=== PATIENT | female | born 2000 | race Caucasian/White ===

== ENCOUNTER 2024-02-19 00:51 | Day surgery (SDC) | payer OTHER, MEDICAID, SELFPAY ==
[2024-02-17 10:10] VITALS: BMI 22.6
--- NOTE | 2024-02-17 10:15 | SUR.PREOP ---
Report to the Outpatient Waiting Room, entrance under the green pavilion located off [facility], at time 0830 on date 02/19/24. Planned Procedure Time: 1030. Time changes happen often and if your time is changed the preop area will call you the afternoon before. - You and your visitor will be asked to self-screen and do not enter if you have any COVID symptoms. - A mask is optional within the hospital at this time. Patients may have clear liquids (water, carbonated beverages, clear teas, apple juice) until 3 hours prior to surgery with a maximum of 20 ounces. - No food from midnight until time of surgery - Infants may have breast milk until 4 hours before surgery, formula 6 hours prior to surgery. - Children will be allowed to drink immediately following surgery. If applicable, please bring a bottle or sippy cup to assist with drinking. Juice, water, soda, and popsicles are readily available. For infants on formula, please bring formula the day of surgery. Pacifiers are allowed. Take the following medications with a SIP of water the morning of surgery: NA DO NOT STOP ANY OF YOUR OTHER PRESCRIPTION MEDICATIONS PRIOR TO SURGERY ?EXCEPT THE FOLLOWING Medications to discontinue per physician NA Date to take last dose Please no make-up, nail luxembourgish, hairspray, perfume, deodorant, or body powder the day of surgery. No jewelry (including any body piercings) or valuables the day of surgery, leave them at home. Please take a shower or bath the night before, or the morning of, surgery with an antibacterial soap. Wear comfortable, loose fitting clothing. Children are encouraged to wear pajamas. - Jewelry must be removed prior to entering the operating room. Rings and piercings that are not removed may be cut off. - The hospital will not accept responsibility for valuables. - Please leave all valuables, including medications, at home the day of surgery. If you are going home after surgery, a licensed mobile lounge driver or operator must drive you home. - NO public transportation without another adult if you receive anesthesia. - We recommend that an adult stay with you for 24 hours following discharge. - We also recommend that you do not drive, make important decision, drink alcoholic beverages, or take any drugs that were not prescribed by your health care provider for at least 24 hours after your discharge time. For Pediatric surgeries, we recommend two adults accompany the child home. Follow any additional instructions given to you from your surgeon. If you or anyone in your household have experienced Covid symptoms in the past week, please notify your surgeon or the nurse liaison at the phone number below for possible testing. Telephone instructions given to __PATIENT___and asked if any additional questions and then verbalized understanding. Patient advised to call surgeon office or pre surgery nurse liaison [phone] if any additional questions.
--- NOTE | 2024-02-18 15:46 | WPDANESEPPF ---
Anes - Initial Pre Proc Eval Procedure: Operation Date: 02/19/24 10:30 Proposed Procedures p Laparoscopic Right Ovarian Cystectomy - Juancho Stokes MD Date/Time: 02/18/24 15:46 Surgeon: Juancho Stokes MD Pre Op Diagnosis: right ovarian cyst Patient Data Age: 23 Gender: F Height: 1.73 m Weight: 67.59 kg Allergies Allergy/AdvReac Type Severity Reaction Status Date / Time latex AdvReac Mild Rash Verified 02/17/24 10:13 Home Medications Medication Instructions Recorded Confirmed Type No Home Medications 02/17/24 02/17/24 History Patient hx anesthesia problems: none Family hx anesthesia problems: none Results Review: All pre-operative results and documents have been reviewed as part of the pre-operative evaluation. [facility] Past Medical History Medical History (Updated 02/18/24 @ 15:46 by Mark Gonzalez DO) Anxiety PONV (postoperative nausea and vomiting) Social History Social History Years smoked: 4 Tobacco type: e-cigarettes/vaping Living arrangements: with family Anes - Eval Final PreProcedure Day of Procedure 02/18/24 15:46 Patient weight: normal Heart: regular rate and rhythm Lungs: clear to auscultation and normal air movement Airway: Mallampati scale class II Neurological: alert and oriented Last oral intake: >/= 8 hours ASA classification: II Emergent: no Anesthetic plan: proceed Anesthesia type and monitoring: general ETT and standard monitoring Results Review: All pre-operative results and documents have been reviewed as part of the pre-operative evaluation. Informed Consent: The patient's anesthetic plan and its attendant risks and benefits were discussed with the patient/family/POA. Questions were solicited and answers provided to the satisfaction of the patient/family/POA.
[2024-02-19] VITALS (12 sets, daily range): BP systolic 102–124; BP diastolic 51–81; PULSE 55–96; RESP 12–16; TEMP 36.6–36.7; O2SAT 95–100
[2024-02-19] MEDS: LACTATED RINGERS 1,000 ML 30 ML IV CONT ×3 (09:28→15:29)
[2024-02-19] MEDS: KETOROLAC 15 MG/ML VIAL (*BKC) IV PUSH (09:29)
[2024-02-19] MEDS: ACETAMINOPHEN 500 MG TABLET 1000 MG PO (09:29)
[2024-02-19] MEDS: SCOPOLAMINE 1 MG PATCH 1 PATCH TRANSDERM (09:51)
--- NOTE | 2024-02-19 11:37 | WPDHPUPDATE1 ---
History and Physical Update Update Date/Time: 02/19/24 11:37 History and Physical has been reviewed, including an updated exam of the patient. There are NO changes in the patient's condition. Risks, benefits, and alternatives have been discussed and questions answered. Patient agrees to proceed with procedure.
--- NOTE | 2024-02-19 13:21 | W.PM.PROC2 ---
Procedure Note - Detailed Date of Procedure 02/19/24 Pre-op Diagnosis right ovarian cyst , pelvic pain Post-op Diagnosis Same Procedure Performed laparoscopic right ovarian cystectomy Surgeon Juancho Stokes MD Anesthesia General Indications Pelvic pain Findings 7 cm right ovarian cyst, normal left ovary, normal tubes and uterus. Description of Procedure The patient was taken to the operating room. She was prepped and draped in the dorsal lithotomy position after induction general anesthesia. A 5 mm incision was made with a scalpel on the abdominal skin in the left upper quadrant of the abdomen. A 5 mm trocar was inserted into the intra-abdominal cavity under direct visualization the scope. In the same fashion a 5 mm left lower quadrant trocar was inserted and a 5 mm infraumbilical trocar was inserted. Laparoscopic ovarian cystectomy was performed on the right ovary using sharp and blunt dissection along with cautery. LigaSure cautery was used to transect along the base of the cyst. Cyst was taken out through the left lower quadrant trocar site. The cut surface was cauterized after the cyst capsule was peeled out. It was hemostatic after the cut surface was cauterized. The pelvis was irrigated. The pneumoperitoneum was reduced. The trocars were removed. Skin was closed with subcuticular 4 micro. The patient's incisions were covered with Dermabond. She was taken recovery room in stable condition. Sponge lap and needle counts were correct x2. Estimated Blood Loss 25 Pathology Yes Complications No immediate complications Condition Stable Disposition Same day
[2024-02-19] MEDS: fentaNYL CITRATE INJ (*CRX) 100 MCG/2 ML VIAL 25 MCG IV PUSH ×8 (13:25→13:50)
[2024-02-19] MEDS: HYDROmorphone HCL INJ (*CRX) 1 MG/ML SYR 0.5 MG IV PUSH ×3 (14:06→15:15)
[2024-02-19] MEDS: oxyCODONE (*CRX) 5 MG/5 ML ORAL SOLN IR PO (14:47)
== END 2024-02-19 15:52 | disposition home or self-care (01) ==
PROVIDERS: Visit Provider Obstetrics & Gynecology
PROC: (CPT 49320; principal; 2024-02-19 10:30)
DX: N83.201 Unspecified ovarian cyst, right side (principal); F17.290 Nicotine dependence, other tobacco product, uncomplicated
CPT/HCPCS: 58662; 88305; 88307; A9270; J1100; J1170; J1885; J2250; J2405; J2704; J3010; J7030; J7120

== ENCOUNTER 2024-05-26 11:32 | Outpatient (CLI) | payer OTHER, MEDICAID, SELFPAY ==
--- NOTE | ~2024-05-26 | US_ITS ---
EXAMINATION: US OB <=14 wk fetus w TV DATE: 05/26/2024 12:38 INDICATION: Missed miscarriage. TECHNIQUE: Real-time transabdominal and transvaginal pelvic ultrasound was performed. COMPARISON: None. FINDINGS: TRANSABDOMINAL ULTRASOUND: The uterus measures 9.9 x 5.8 x 6.9 cm. TRANSVAGINAL ULTRASOUND: There is a cyst in the endometrial complex with mean diameter of 15 mm. If t his finding is a gestational sac, it correlates with an estimated gestational age of 6 weeks and 2 da ys +/- 4 days. No definite yolk sac or pole is identified. There is a small hematoma in the end ometrial complex abutting the cyst. The right ovary measures 3.5 x 1.6 x 3.4 cm. The left ovary measu res 3.3 x 2.0 x 3.4 cm. There is normal vascular flow in the ovaries. There is no free fluid in the p tierra. IMPRESSION: 1. Cyst in the endometrial complex that may be a gestational sac with estimated date of delivery of 01/17/2025. Ectopic and spontaneous are not excluded. Serial beta-hCGs are recommen ded. 2. Small hematoma in the endometrial complex abutting the cyst. Reviewed, dictated and finalized at location A. IMPRESSION: 1. Cyst in the endometrial complex that may be a gestational sac with estimate d date of delivery of 01/17/2025. Ectopic and spontaneous are not excluded. Serial beta-hCGs are recommended. 2. Small hematoma in the endometrial complex abutting the cyst.
== END 2024-05-26 11:33 | disposition home or self-care (01) ==
PROVIDERS: Visit Provider Obstetrics & Gynecology
DX: O02.1 Missed abortion (principal); N85.8 Other specified noninflammatory disorders of uterus
CPT/HCPCS: 76801; 76817

== ENCOUNTER 2024-06-10 01:34 | Day surgery (SDC) | payer OTHER, MEDICAID, SELFPAY ==
[2024-06-08 14:14] VITALS: BMI 23.0
--- NOTE | 2024-06-08 14:15 | PC.NURSE ---
Report to the Outpatient Waiting Room, entrance under the green pavilion located off [facility], at time _0700_ on date _[id number]_. Planned Procedure Time: _0900_.? Time changes happen often and if your time is changed the preop area will call you the afternoon before. - You and your visitor will be asked to self-screen and do not enter if you have any COVID symptoms. Please call surgeon if you need to reschedule. - A mask is optional within the hospital at this time. Patients may have clear liquids (water, carbonated beverages, clear teas, apple juice) until 3 hours prior to surgery with a maximum of 20 ounces. - No food from midnight until time of surgery and no smoking No Vaping. Take only the following medications with a SIP of water on the morning of surgery: ___None DO NOT STOP ANY OF YOUR OTHER PRESCRIPTION MEDICATIONS PRIOR TO SURGERY EXCEPT THE FOLLOWING Medications to discontinue per physician ____None Date to take last dose Please no make-up, nail french, hairspray, perfume, deodorant, or body powder the day of surgery.? No jewelry (including any body piercings) or valuables the day of surgery, leave them at home.? Please take a shower or bath the night before, or the morning of, surgery with an antibacterial soap.? Wear comfortable, loose fitting clothing.? - Jewelry must be removed prior to entering the operating room.? Rings and piercings that are not removed may be cut off. - The hospital will not accept responsibility for valuables.? - Please leave all valuables, including medications, at home the day of surgery. If you are going home after surgery, a licensed utility worker driver must drive you home.? - NO public transportation without another adult if you receive anesthesia. - We recommend that an adult stay with you for 24 hours following discharge. - We also recommend that you do not drive, make important decision, drink alcoholic beverages, or take any drugs that were not prescribed by your health care provider for at least 24 hours after your discharge time. Follow any additional instructions given to you from your surgeon. Telephone instructions given to _Tameka___and asked if any additional questions and then verbalized understanding. Patient advised to call surgeon office or pre surgery nurse liaison [phone] if any additional questions.
[2024-06-10] VITALS (9 sets, daily range): BP systolic 94–121; BP diastolic 52–77; PULSE 58–86; RESP 12–18; TEMP 36.7; O2SAT 99–100
[2024-06-10] MEDS: LACTATED RINGERS 1,000 ML 30 ML IV CONT ×2 (08:30→10:11)
--- NOTE | 2024-06-10 08:30 | PM.IMHP ---
H&P: HPI History of Present Illness Date/Time: 06/10/24 08:30 Chief Complaint: Unwanted fertility Narrative: 23-year-old female with unwanted fertility who has agreed to perform laparoscopic bilateral salpingectomy The patient understands the details of the procedure. The procedure has been explained in detail. She understands the risks. She understands that injuries may occur that result in hospitalization, more surgery, and severe illness. She understands risk of hemorrhage and infection. She denies any chest pain or shortness of breath. She denies any nausea, vomiting, fever, chills. Review of Systems Review of Systems: All systems reviewed & are unremarkable except as noted in HPI and below Constitutional: Constitutional: Denies chills, Denies fatigue, Denies fever(s) and Denies weakness Eyes: Eyes: Denies blurry vision, Denies change in vision, Denies loss of peripheral vision, Denies loss of vision, Denies other visual disturbances and Denies eye pain ENT: Denies vertigo, Denies dizziness, Denies hearing loss, Denies mouth pain, Denies nasal obstruction, Denies neck mass and Denies neck pain Cardiovascular: Cardiovascular: Denies chest pain, Denies diaphoresis, Denies syncope, Denies leg edema and Denies dyspnea Respiratory: Respiratory: Denies chest congestion, Denies cough, Denies hemoptysis, Denies dyspnea and Denies wheezing Gastrointestinal: Gastrointestinal: Denies abdominal pain, Denies constipation, Denies diarrhea, Denies nausea and Denies vomiting Genitourinary: Genitourinary: Denies hematuria, Denies change in libido, Denies nocturia, Denies genital lesions, Denies flank pain and Denies urinary urgency Musculoskeletal: Musculoskeletal: Denies abnormal gait, Denies back pain, Denies myalgias, Denies arthralgias, Denies joint swelling, Denies muscle weakness and Denies neck pain Integumentary/Breasts: Skin/Breast: Denies swelling, Denies breast pain, Denies breast mass, Denies dry skin, Denies nipple discharge, Denies unusual bruising and Denies jaundice Neurologic: Denies Neuro-related abnormal movements, Denies Abnormal speech present, Denies abnormal gait, Denies behavioral changes, Denies confusion, Denies vertigo, Denies dizziness, Denies syncope, Denies loss of vision, Denies memory loss, Denies convulsions and Denies weakness Psychiatric: Psychiatric: Denies abnormal sleep pattern, Denies behavioral changes, Denies change in libido, Denies confusion, Denies depression, Denies anhedonia and Denies memory loss Endocrine: Endocrine: Reports no additional endocrine complaints, Denies change in libido and Denies fatigue Hematologic/Lymphatic: Hematologic/Lymphatic: Reports no additional hematologic/lymphatic complaints Allergic/Immunologic: Allergic/Immunologic: Reports no additional allergic/immunologic complaints and Denies wheezing PMFSH Past Medical History Medical History (Updated 06/10/24 @ 08:31 by Juancho Stokes MD) Anxiety PONV (postoperative nausea and vomiting) Social History Social History Years smoked: 4 Tobacco type: e-cigarettes/vaping Alcohol intake: current Living arrangements: with family Spiritual care concerns: No Meds Home Medications and Allergies Home Medications Medication Instructions Recorded Confirmed Type No Home Medications 06/08/24 06/08/24 History Allergies Allergy/AdvReac Type Severity Reaction Status Date / Time latex AdvReac Mild Rash Verified 06/08/24 14:10 Exam Const: General: cooperative, healthy appearing, comfortable and no acute distress Orientation/consciousness: oriented to person, oriented to place and oriented to time HENMT: Head: normal to inspection Ears: external ears normal Face/Nose/Sinus: Normal external nose present and normal facial exam Face and sinus: normal facial exam Eyes: General: appearance normal, both eyes and all related structures Neck: Neck: normal visual inspection, trachea midline and s
--- NOTE | 2024-06-10 08:32 | WPDHPUPDATE1 ---
History and Physical Update Update Date/Time: 06/10/24 08:32 History and Physical has been reviewed, including an updated exam of the patient. There are NO changes in the patient's condition. Risks, benefits, and alternatives have been discussed and questions answered. Patient agrees to proceed with procedure.
[2024-06-10] MEDS: ACETAMINOPHEN 500 MG TABLET 1000 MG PO (08:40)
--- NOTE | 2024-06-10 08:41 | PM.IMHP ---
H&P: HPI History of Present Illness Date/Time: 06/10/24 08:41 Chief Complaint: Incomplete miscarriage Narrative: this patient is a 23-year-old female with incomplete miscarriage. We have agreed to perform suction D&C The patient understands the details of the procedure. The procedure has been explained in detail. She understands the risks. She understands that injuries may occur that result in hospitalization, more surgery, and severe illness. She understands risk of hemorrhage and infection. She denies any chest pain or shortness of breath. She denies any nausea, vomiting, fever, chills. Review of Systems Review of Systems: All systems reviewed & are unremarkable except as noted in HPI and below Constitutional: Constitutional: Denies chills, Denies fatigue, Denies fever(s) and Denies weakness Eyes: Eyes: Denies blurry vision, Denies change in vision, Denies loss of peripheral vision, Denies loss of vision, Denies other visual disturbances and Denies eye pain ENT: Denies vertigo, Denies dizziness, Denies hearing loss, Denies mouth pain, Denies nasal obstruction, Denies neck mass and Denies neck pain Cardiovascular: Cardiovascular: Denies chest pain, Denies diaphoresis, Denies syncope, Denies leg edema and Denies dyspnea Respiratory: Respiratory: Denies chest congestion, Denies cough, Denies hemoptysis, Denies dyspnea and Denies wheezing Gastrointestinal: Gastrointestinal: Denies abdominal pain, Denies constipation, Denies diarrhea, Denies nausea and Denies vomiting Genitourinary: Genitourinary: Denies hematuria, Denies change in libido, Denies nocturia, Denies genital lesions, Denies flank pain and Denies urinary urgency Musculoskeletal: Musculoskeletal: Denies abnormal gait, Denies back pain, Denies myalgias, Denies arthralgias, Denies joint swelling, Denies muscle weakness and Denies neck pain Integumentary/Breasts: Skin/Breast: Denies swelling, Denies breast pain, Denies breast mass, Denies dry skin, Denies nipple discharge, Denies unusual bruising and Denies jaundice Neurologic: Denies Neuro-related abnormal movements, Denies Abnormal speech present, Denies abnormal gait, Denies behavioral changes, Denies confusion, Denies vertigo, Denies dizziness, Denies syncope, Denies loss of vision, Denies memory loss, Denies convulsions and Denies weakness Psychiatric: Psychiatric: Denies abnormal sleep pattern, Denies behavioral changes, Denies change in libido, Denies confusion, Denies depression, Denies anhedonia and Denies memory loss Endocrine: Endocrine: Reports no additional endocrine complaints, Denies change in libido and Denies fatigue Hematologic/Lymphatic: Hematologic/Lymphatic: Reports no additional hematologic/lymphatic complaints Allergic/Immunologic: Allergic/Immunologic: Reports no additional allergic/immunologic complaints and Denies wheezing PMFSH Past Medical History Medical History (Updated 06/10/24 @ 08:42 by Juancho Stokes MD) Anxiety PONV (postoperative nausea and vomiting) Social History Social History Years smoked: 4 Tobacco type: e-cigarettes/vaping Alcohol intake: current Living arrangements: with family Spiritual care concerns: No Meds Home Medications and Allergies Home Medications Medication Instructions Recorded Confirmed Type No Home Medications 06/08/24 06/08/24 History Allergies Allergy/AdvReac Type Severity Reaction Status Date / Time latex AdvReac Mild Rash Verified 06/08/24 14:10 Exam Const: General: cooperative, healthy appearing, comfortable and no acute distress Orientation/consciousness: oriented to person, oriented to place and oriented to time HENMT: Head: normal to inspection Ears: external ears normal Face/Nose/Sinus: Normal external nose present and normal facial exam Face and sinus: normal facial exam Eyes: General: appearance normal, both eyes and all related structures Neck: Neck: normal visual inspection, trachea midline
--- NOTE | 2024-06-10 08:44 | WPDANESEPPF ---
Anes - Initial Pre Proc Eval Procedure: Operation Date: 06/10/24 09:00 Proposed Procedures p Suction Dilation and Curettage - Juancho Stokes MD Date/Time: 06/10/24 08:44 Surgeon: Juancho Stokes MD Pre Op Diagnosis: retained products of conception Patient Data Age: 23 Gender: F Height: 1.73 m Weight: 68.6 kg Allergies Allergy/AdvReac Type Severity Reaction Status Date / Time latex AdvReac Mild Rash Verified 06/08/24 14:10 Home Medications Medication Instructions Recorded Confirmed Type No Home Medications 06/08/24 06/08/24 History Patient hx anesthesia problems: post op nausea/vomiting Family hx anesthesia problems: none Results Review: All pre-operative results and documents have been reviewed as part of the pre-operative evaluation. [facility] Past Medical History Medical History (Updated 06/10/24 @ 08:42 by Juancho Stokes MD) Anxiety PONV (postoperative nausea and vomiting) Social History Social History Years smoked: 4 Tobacco type: e-cigarettes/vaping Alcohol intake: current Living arrangements: with family Spiritual care concerns: No Anes - Eval Final PreProcedure Day of Procedure 06/10/24 08:44 Patient weight: normal Heart: regular rate and rhythm Lungs: clear to auscultation Airway: Mallampati scale class II Neurological: alert and oriented Last oral intake: >/= 8 hours ASA classification: II Emergent: no Anesthetic plan: proceed Anesthesia type and monitoring: general GIVS and standard monitoring Results Review: All pre-operative results and documents have been reviewed as part of the pre-operative evaluation. Informed Consent: The patient's anesthetic plan and its attendant risks and benefits were discussed with the patient/family/POA. Questions were solicited and answers provided to the satisfaction of the patient/family/POA.
[2024-06-10] MEDS: SCOPOLAMINE 1 MG PATCH 1 PATCH TRANSDERM (08:50)
[2024-06-10] MEDS: LIDOCAINE HCL 1% LOCAL INJ 20 ML VIAL 10 ML INFILTRATE (09:01)
--- NOTE | 2024-06-10 09:19 | W.PM.PROC2 ---
Procedure Note - Detailed Date of Procedure 06/10/24 Pre-op Diagnosis retained products of conception Post-op Diagnosis Same Procedure Performed Suction D&C Surgeon Juancho Stokes MD Anesthesia MAC Indications missed Findings normal-appearing vulva vagina and cervix to. Moderate amount of products conception within the uterus. 8 cm uterus Description of Procedure the patient was taken the operating room. She was prepped and draped in dorsal lithotomy position after induction of mac anesthesia. A speculum was placed in the vagina. Cervix grasped with tenaculum. The cervix was dilated to about 1 cm Using Harding dilators. A 8. Latvian curved curette was used to perform suction D&C. The curette was introduced and vacuum was applied. The curette was removed over all surfaces of the intrauterine cavity multiple times. This was done until all the surfaces were clear and had the familiar grainy texture they can be felt through the instrument. A sharp curette was then used to curettage all the surfaces. The suction cup was then reapplied 1 more time to remove any debris. The instruments were removed. The speculum and tenaculum were removed. The patient tolerated the procedure well. She was taken recovery room stable condition. Estimated Blood Loss 50 Drains No Packing No Pathology Yes Complications No immediate complications Condition Stable Disposition PACU
[2024-06-10] MEDS: fentaNYL CITRATE INJ (*CRX) 100 MCG/2 ML VIAL 25 MCG IV PUSH ×8 (09:34→10:38)
[2024-06-10] MEDS: ONDANSETRON INJ 4 MG/2 ML VIAL IV PUSH (09:34)
--- NOTE | 2024-06-10 10:06 | SUR.PHASEII ---
MD Egan notified - pt still stating 9/10 pain despite 175mcg Fentanyl. New orders for RN to give 30mg toradol IVP once. Pt did NOT receive toradol in preop.
[2024-06-10] MEDS: KETOROLAC 30 MG/ML VIAL (*BKC) IV PUSH (10:09)
--- NOTE | 2024-06-10 10:32 | SUR.PHASEII ---
MD Stokes contacted - pt reporting abdominal cramping 05/12 in outpatient despite pain medications. Pt requesting pain prescription to discharge home with. MD Stokes states he will send script for pain medication to pt listed preferred pharmacy. Pt education provided.
--- NOTE | 2024-06-10 10:56 | SUR.PHASEII ---
MD Egan contacted - pt reporting nausea after ordered Zofran. New orders for RN to give 6.25mg Benadryl IVP (can repeat once for max dose of 12.5mg).
[2024-06-10] MEDS: diphenhydrAMINE HCl INJ 50 MG/ML VIAL 6.25 MG IV PUSH (11:01)
== END 2024-06-10 11:56 | disposition home or self-care (01) ==
PROVIDERS: Visit Provider Obstetrics & Gynecology
PROC: (CPT 59812; principal; 2024-06-10 09:00)
DX: O03.4 Incomplete spontaneous abortion without complication (principal); F41.9 Anxiety disorder, unspecified; F17.290 Nicotine dependence, other tobacco product, uncomplicated
CPT/HCPCS: 59812; 36415; 85461; 86850; 86900; 86901; 88305; A9270; J1100; J1200; J1885; J2003; J2250; J2405; J2704; J3010; J7120

== ENCOUNTER 2025-03-28 10:12 | Emergency (ER) | payer OTHER, MEDICAID, SELFPAY ==
--- NOTE | ~2025-03-28 | US_ITS ---
EXAM: PELVIC ULTRASOUND HISTORY: post medication miscarriage quantitative beta hCG measures 37,623. No prior value has been performed. COMPARISON: None. FINDINGS: UTERUS: 9.4 x 5.1 x 6.6 cm. The uterus is anteverted and anteflexed. The endometrial complex is thickened, heterogeneous and vascular and measures 21 mm. RIGHT OVARY: The right ovary is unremarkable in echogenicity and size measuring 3.3 x 1.5 x 3.0 cm. Dopplerable flow is identified. LEFT OVARY: The left ovary is unremarkable in echogenicity and size measuring 2.2 x 1.1 x 2.0 cm Dopplerable flow is identified. Trace free fluid within the posterior cul-de-sac. IMPRESSION: Thickened heterogeneous and vascular endometrial complex, as detailed above. Reviewed, dictated and finalized at location A.
--- OUTSIDE RECORDS SUMMARY | 2025-03-28 10:14 | XMS_ITS | Clinical Summary ---
Author Organization [facility] [place] Address [address] [place] [address] Care Team Providers Care Autotransfusionist Name Role Phone Ruma Power MD Primary Care Provider [phone] Source Comments [facility],non-owned Affiliates and Associated Physician Practices is amultiple site organization consisting of ambulatory clinics and hospital sitesin [place], [place], [place] and [place]. This disclosure is being madepursuant to the Care Everywhere program and may not contain all information available regarding this patient. Last updated 18.[facility] [place] Allergies No known active allergies Medications * Be aware that medications may not be up to date on this document. Alwaysverify current medications with the patient. cyclobenzaprine (FLEXERIL) 10 MG tablet Take 10 mg by mouth 06/06/20 17 Active HYDROcodone-acet aminophen (NORCO) 5-325 MG tablet Take 1 tablet by mouth every 4 hours as needed for Pain 12 tablet 07/05/20 17 Active Additional Information Patient not taking.Reported on 02/25/2018 acetaminophen (TYLENOL) 500 MG tablet Take 1 tablet by mouth every 4 hours as needed for Fever or Pain Maximum allowable Acetaminophen amount = 4 Grams (4000 mg) / 24 hours. 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 Social History Tobacco Use Types Packs/Day Years Used Date Smoking Tobacco: Never Smokeless Tobacco: Never Alcohol Use Standard Drinks/Week Comments No 0 (1 standard drink = 0.6 oz pur e alcohol) Comments Unknown Sex and Gender Information Value Date Recorded Sex Assigned at Not on file Legal Sex Female 2:55 PM CDT Gender Identity Not on file Sexual Orientation Not on file Last Filed Vital Signs Vital Sign Reading Time Taken Comments Blood Pressure 110/71 02/25/2018 2:19 PM CDT Pulse 97 02/25/2018 2:19 PM CDT Temperature 36.9 C (98.4 F) 02/25/2018 2:19 PM CDT Respiratory Rate 16 07/05/2017 3:25 PM CDT Oxygen Saturation 98% 02/25/2018 2:19 PM CDT Inhaled Oxygen Concentration - - Weight 73 kg (161 lb) 02/25/2018 2:19 PM CDT Height 175.3 cm (5' 9) 02/25/2018 2:19 PM CDT Body Mass Index 23.78 02/25/2018 2:19 PM CDT Plan of Treatment Health Maintenance Due Date Last Done Comments HIV SCREENING 2014 HPV VACCINE (1 - 3-dose series) 2014 CHLAMYDIA/GONORRHEA SCREENING 2015 HEPATITIS C SCREENING 09/28/2017 DTAP/TDAP/TD VACCINES (1 - Tdap) 2018 HEPATITIS B VACCINE (1 of 3 - 19+ 3-dose series) 2018 PAP SMEAR 2020 COVID-19 VACCINE (1 - 2023-2 5 season) 2024 DEPRESSION SCREENING 09/02/2024 INFLUENZA VACCINE (#1) 2025 ZOSTER VACCINE (1 of 2) 2049 HIB VACCINE Aged Out No longer eligi ble based on patient's age to complete this topic MENINGOCOCCAL (Group B) VACC INE SHARED DECISION-MAKING Aged Out No longer eligibl e based on patient's age to complete this topic MENINGOCOCCAL GROUPS A/C/Y/W VACCINE Aged Out No longer eligible b ased on patient's age to complete this topic PNEUMOCOCCAL VACCINE Aged Out No long er eligible based on patient's age to complete this topic Insurance MEDICAID - [place] SELF PAY NO INSURANCE Member Subscriber Plan / Payer (Ef fective for All Dates) Name:[employer]ka [employer] Member ID:Not on file Relation to Subscriber:Not on file Name:TAMEKA PAINTING Subscriber ID:Not on file (Home) Address: [address] [place] [id number] Payer ID:Not on file Group ID:Not on file Type:Self Pay Address: [facility] Member Subscriber Plan / Payer (Ef fective 2014-Present) Name:Tameka Pain[employer] Member ID:Not on file Relation to Subscriber:Child Name:ANTHONY PAINTING Date of :1969 (Home) (Work) Address: [address] [place] [address] Payer ID:Not on file Type:PPO Address: [address] MEDICAID - [place] [facility] * Guarantor: ANTHONY PAINTING Account Type Relation to Patient Date of Phone Billing Address Personal/Family Spouse [facility] [place] [facility] * Guarantor: TAMEKA PA[employer] Account Type Relation to Patient Date of Phone Billing Address Personal/Family [place] [facility] * Guarantor: TAMEKA PAINTING Account Type Relation to Patient Date of Phone Billing Address Personal/Family [place] [facility] * Guarantor: T[employer]KA [employer] Account Type Relation to Patient Date of Phone Billing Address Personal/Family [place] - [place] [facility] * Guarantor: ANTHONY PAINTING Account Type Relation to Patient Date of Phone Billing Address Personal/Family Spouse * Guarantor: TAMEKA PA[employer] Account Type Relation to Patient Date of Phone Billing Address Personal/Family [address] [place] [address] Care Teams Autotransfusionist Relationship Specialty Start Date End Date Ruma Power MD [address] [facility] [address] [place] [address] PCP - General Pediatrics 04/25/17
--- OUTSIDE RECORDS SUMMARY | 2025-03-28 10:14 | XMS_ITS | Clinical Summary ---
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 Gender Identity Not on file Sexual Orientation Not on file Plan of Treatment Health Maintenance Due Date Last Done Comments Hepatitis C Virus (HCV) Screening 1999 TdaP Immunization 1999 Human Papillomavirus (HPV) Immunization (1 - 3-dose series) 2014 SARS-COV-2 Immunization ( season) 2024 Influenza Immunization (#1) 2025 Respiratory Syncytial Virus (RSV) Immunization (Adult) (1 - 1-dose 75+ series) 2074 DTaP/Tdap/Td Immunization Discontinued 1999, 02/08/2000, 1999 Hepatitis B Immunization Completed 000, 1999, 1999 Pneumococcal Immunization Combined Aged Out 10/17/2000, 07/03/2000 No longer eligible based on patient's age to complete this topic Meningococcal Immunization (ACWY) Aged Out No longer eligible based on patient's age to complete this topic Rotavirus Immunization Aged Out No lo nger eligible based on patient's age to complete this topic
--- OUTSIDE RECORDS SUMMARY | 2025-03-28 10:14 | XMS_ITS | Data Portability ---
Author Organization [facility] Address [address] [place] [address] [place] [address] Assessment No assessment recorded. Plan of Treatment Reminders Order Date Submit Date Provider Last Modified By Organization Details Last Modified Time Details Appointments U/S OB SNEAK PEAK 2024 10:00A M ULTRASOUND Not available Not available Not available OB SCREEN 2024 10:45A M SHUBHAM RAMSEY MD Not available Not available Not available Lab urinaly sis, dipstic k 2024 025 [email or web address], [address], [place], [address], 12/23/2024 12:35:14 culture , urine 2024 025 [facility] (Lab), [address] , [place], [address], 12/24/2024 22:18:04 HBsAg (hepati tis B surface Ag), serum 2024 025 [facility] (Lab), [address] , [place], [address], 12/24/2024 15:59:32 unliste d lab - women's health swab plus, KATIA 2024 025 [facility] (Lab), [address] , [place], [address], 12/24/2024 22:18:04 HBsAg (hepati tis B surface Ag), serum 2024 025 [facility] (Lab), [address], [place], [address], 11/02/2024 09:00:04 TSH, serum or plasma 2024 025 [facility] (Lab), [address], [place], [address], 11/02/2024 09:00:06 lupus anticoa gulant, plasma 2024 025 [facility] (Lab), [address], [place], [address], 11/02/2024 09:00:08 anticar diolipi n igg+igm Ab, serum 2024 025 [facility] (Lab), [address], [place], [address], 11/02/2024 09:00:07 beta-2 glycopr otein 1 igm Ab, serum 2024 025 [facility] (Lab), [address], [place], [address], 11/02/2024 09:00:07 beta-2 glycopr otein 1 igg Ab, serum 2024 025 [facility] (Lab), [address] [place], [address], 11/02/2024 09:00:07 HbA1c (hemogl obin A1c), blood 2024 025 [facility] (Lab), [address], [place], [address], 11/02/2024 09:00:08 prolact in, serum 2024 025 [facility] (Lab), [address], [place], [address], 11/02/2024 09:00:04 progest erone, serum 2024 025 [facility] (Lab), [address] [place], [address], 11/02/2024 09:00:05 testost erone free/te stoster one total, ratio, serum 2024 025 [facility] (Lab), [address] [facility] [address] [facility], [place], [address], 11/02/2024 09:00:08 shbg (sex hormone -bindin g globuli n), serum 2024 025 [facility] (Lab), [address] [facility], [place], [address], 11/02/2024 09:00:06 anti-mu llerian hormone (amh), serum 2024 025 [facility] (Lab), [address] [place], [address], 11/02/2024 09:00:06 FSH (follic le-stim ulating hormone ), serum 2024 025 [facility] (Lab), [address] [place], [address], 11/02/2024 09:00:05 irving bahena - inherit est carrier screen, society -guided panel (14 genes) 2024 025 [facility] (Lab), [address] [place], [address], 11/02/2024 09:00:09 chromos ome analysi s panel, blood or tissue 2024 025 [facility] (Lab), [address] [place], [address], 11/02/2024 09:00:09 Referral None recorde d. Procedures None recorde d. Surgeries None recorde d. Imaging US, obstetr ic, transva ginal 2024 025 [email or web address], [place], [address], 03/17/2025 16:52:44 US, transva ginal 2024 025 [email or web address], [address], [place], [address], 10/29/2024 18:30:22 US, saline infused uterus 2024 025 [email or web address], [address], [place], [address], 02/15/2025 08:50:30 Medication Orders flucona zole 150 mg tablet 2024 025 [id number], [address], [place], [id number], 12/23/2024 12:52:47 Macrobi d 100 mg capsule 2024 025 [id number], [address], [place], [id number], 12/23/2024 12:47:02 Patient TargetsNo targets recorded. Patient InstructionsNo instructions recorded. Reason for Referral None Reported. Results Created Date Observation Date Name Description Value Unit Range Abnormal Flag Note LastModifiedBy Organization Detail LastModifiedTime 10/08/19 25 10/08/2024 BHCG, QUANT ITATI VE B-HCG 14.0 mIU/m L 0.0-4. 9 high This assay was perfo rmed using [employer] ratio n reage nts and test kits. Value s obtai mode with other assay metho ds or kits canno t be used inter means eably . Refer ence Range s: Non-p regna nt, preme nopau jeff women : 0.0-4 .9 mIU/m L Postm enopa usal women : 0.0-7 .0 mIU/m L Ilda l Pregn shirlene: Gesta micheal l Age bHCG Conc. - mIU/m L 3 Weeks 5.8 - 71.7 4 Weeks 9.5 - 750 5 Weeks 217-7 138 6 Weeks 158 - 31,79 5 7 Weeks 3,697 - 162,5 63 8 Weeks 32,06 5 - 149,5 71 9 Weeks 63,80 3 - 151,4 10 10 Weeks 46,50 9 - 186,9 77 12 Weeks 27,83 2 - 210,6 12 14 Weeks 13,95 0 - 62,53 0 15 Weeks 12,03 9 - 70,97 1 16 Weeks 9,040 - 56,45 1 17 Weeks 8,175 - 55,86 8 18 Weeks 8,099 - 58,17 6 Not Available [facility] (Lab) [address], [place], [address], 10/09/2024 06:05:20 10/09/19 25 10/09/2024 BHCG, QUANT ITATI VE B-HCG 9.8 mIU/m L 0.0-4. 9 high This assay was perfo rmed using [employer] ratio n reage nts and test kits. Value s obtai mode with other assay metho ds or kits canno t be used inter means eably . Refer ence Range s: Non-p regna nt, preme nopau jeff women : 0.0-4 .9 mIU/m L Postm enopa usal women : 0.0-7 .0 mIU/m L Ilda l Pregn shirlene: Gesta micheal l Age bHCG Conc. - mIU/m L 3 Weeks 5.8 - 71.7 4 Weeks 9.5 - 750 5 Weeks 217-7 138 6 Weeks 158 - 31,79 5 7 Weeks 3,697 - 162,5 63 8 Weeks 32,06 5 - 149,5 71 9 Weeks 63,80 3 - 151,4 10 10 Weeks 46,50 9 - 186,9 77 12 Weeks 27,83 2 - 210,6 12 14 Weeks 13,95 0 - 62,53 0 15 Weeks 12,03 9 - 70,97 1 16 Weeks 9,040 - 56,45 1 17 Weeks 8,175 - 55,86 8 18 Weeks 8,099 - 58,17 6 Not Available [facility] (Lab) [address], [place], [address], 10/10/2024 07:43:57 10/12/19 25 10/12/2024 BHCG, QUANT ITATI VE B-HCG 1.8 mIU/m L 0.0-4. 9 This assay was perfo rmed using [employer] ratio n reage nts and test kits. Value s obtai mode with other assay metho ds or kits canno t be used inter means eably . Refer ence Range s: Non-p regna nt, preme nopau jeff women : 0.0-4 .9 mIU/m L Postm enopa usal women : 0.0-7 .0 mIU/m L Ilda l Pregn shirlene: Gesta micheal l Age bHCG Conc. - mIU/m L 3 Weeks 5.8 - 71.7 4 Weeks 9.5 - 750 5 Weeks 217-7 138 6 Weeks 158 - 31,79 5 7 Weeks 3,697 - 162,5 63 8 Weeks 32,06 5 - 149,5 71 9 Weeks 63,80 3 - 151,4 10 10 Weeks 46,50 9 - 186,9 77 12 Weeks 27,83 2 - 210,6 12 14 Weeks 13,95 0 - 62,53 0 15 Weeks 12,03 9 - 70,97 1 16 Weeks 9,040 - 56,45 1 17 Weeks 8,175 - 55,86 8 18 Weeks 8,099 - 58,17 6 Not Available [facility] (Lab) [address], [place], [address], 10/13/2024 05:36:45 10/19/19 25 10/19/2024 WOMEN 'S HEALT H SWAB PLUS, KATIA bacterial vaginosis (bv), tma Positi ve negati ve abnormal Not Available [facility] (Lab) [address], [place], [address], 10/25/2024 23:55:02 10/19/19 25 10/19/2024 WOMEN 'S HEALT H SWAB PLUS, KATIA laura species, tma Negati ve negati ve Not Available [facility] (Lab) [address] [place], [address], 10/25/2024 23:55:02 10/19/19 25 10/19/[address] [facility], KATIA laura glabrata, tma Negati ve negati ve Not Available [facility] (Lab) [address] [place], [address], 10/25/2024 23:55:02 10/19/19 25 10/19/[address] [facility], KATIA trichomonas vaginalis, tma Negati ve negati ve Not Available [facility] (Lab) [address] [facility], [place], [address], 10/25/2024 23:55:02 10/19/19 25 10/19/[address] [facility], KATIA chlamydia trachomatis, PCR Negati ve negati ve Not Available [facility] (Lab) [address] [place], [address], 10/25/2024 23:55:02 10/19/19 25 10/19/[address] [facility], KATIA neisseria gonorrhoeae, PCR Negati ve negati ve Colle cted by offic e staff . Bacte rial vagin osis detec ts the follo wing bacte elba assoc iated with bacte rial vagin osis (BV): Lacto bacil edouard (L. gasse ri, L. crisp atus and L. jense macy), Gardn erell a vagin jaden, and Atopo bium vagin ae. A singl e quali tativ e resul t is repor edin base on instr ument softw are to deter mine BV posit alejandro or negat alejandro statu s. The Maya [facility] speci es group tests for C. albic ans, C. tropi calis , C. parap diana is, C. pb medrano is. Testi ng is perfo rmed using the Trans cript ion Media edin Ampli ficat ion metho d. Tests for Maya da glabr mary, Trich omona s vagin jaden, Chlam ydia trach omati s, and Neiss eria gonor rhoea e are also inclu ded in this panel . Not Available [facility] (Lab) [address], [place], [address], 10/25/2024 23:55:02 10/19/1910/19/2024 LUPUS ANTIC OAGUL ANT INTER PRETA TION lupus anticoagulan t interpretati on A lupus antico agulan t is not detect ed. Inter prete d By: Joel Zee MD 2024 12:05 1. Negat alejandro resul ts do not rule out the prese nce of lupus antic oagul ant due to the limit ation of DRVVT and SCT senst iviti es. 2. Posit alejandro resul ts may confi rm the prese nce of lupus antic oagul ant but also may occur in cases with certa in inter ferin g subst ances such as antic oagul ant thera py. 3. Clini sylvia histo ry as well as other lab resul ts must be caref ully evalu ated befor e makin g a diagn osis. 4. If the Lupus Evalu ation is negat alejandro, and PTT or PT are prolo nged, mixin g studi es shoul d be sough t to inves tigat e facto r defic ienci es or inhib itors . If mixin g studi es are still prolo nged, it may indic ate the prese nce of an inhib itor other than lupus antic oagul ent, or it may sugge st false negat alejandro lupus antic oagul ant resul ts. Not Available [facility] (Lab) [address], [place], [address], 11/02/2024 09:00:03 10/19/1910/19/2024 HBSAG /HCV/ HIV/R KS HIV antigen/anti body Nonrea ctive nonrea ctive HIV-1 antig en and HIV-1 /HIV- 2 antib odies were not detec edin. No labor atory evide nce of HIV infec tion. Not Available [facility] (Lab) [address], [place], [address], 11/02/2024 09:00:04 10/19/19 25 10/19/2024 HBSAG /HCV/ HIV/R KS hepatitis B surface antigen Non-re active non-re active This assay was perfo rmed using [employer] ratio n reage nts and test kits. Value s obtai mode with other assay metho ds or kits canno t be used inter means eably . Not Available [facility] (Lab) [address], [place], [address], 11/02/2024 09:00:04 10/19/19 25 10/19/2024 HBSAG /HCV/ HIV/R KS hepatitis C antibody Non-re active non-re active Antib odies to HCV Not Detec edin, does not exclu de the possi bilit y of expos ure to HCV. Not Available [facility] (Lab) [address], [place], [address], 11/02/2024 09:00:04 10/19/19 25 10/19/2024 HBSAG /HCV/ HIV/R KS RPR screen Nonrea ctive nonrea ctive Not Available [facility] (Lab) [address] [place], [address], 11/02/2024 09:00:04 10/19/19 25 10/19/2024 PROLA CTIN prolactin, total 11.90 NG/mL 4.79-2 3.30 This assay was perfo rmed using [employer] ratio n reage nts and test kits. Value s obtai mode with other assay metho ds or kits canno t be used inter means eably . Not Available [facility] (Lab) [address], [place], [address], 11/02/2024 09:00:04 10/19/19 25 10/19/2024 FSH FSH 6.0 mIU/m L This assay was perfo rmed using [employer] ratio n reage nts and test kits. Value s obtai mode with other assay metho ds or kits canno t be used inter [facility] . Femal es Folli cular : 3.5-1 2.5 mIU/m L Ovula tion: 4.7-2 1.5 mIU/m L Lutea l: 1.7-7 .7 mIU/m L Postm enopa use: 25.8- 134.8 mIU/m L Not Available [facility] (Lab) [address], [place], [address], 11/02/2024 09:00:05 10/19/19 25 10/19/2024 PROGE STERO NE progesterone 0.25 NG/mL This assay was perfo rmed using [employer] ratio n reage nts and test kits. Value s obtai mode with other assay metho ds or kits canno t be used inter [facility] . Femal e Proge stero ne Range s: Folli cular phase 0.06- 0.89 ng/mL Ovula tion phase 0.12- 12.00 ng/mL Lutea l phase 1.83- 23.90 ng/mL Postm enopa usal <0.05 -0.13 ng/mL Healt hy Pregn ant Women 1st Trime ster 11.0- 44.30 2nd Trime ster 25.40 -83.3 0 3rd Trime ster 58.70 -214. 00 Not Available [facility] (Lab) [address], [place], [address], 11/02/2024 09:00:05 10/19/19 25 10/19/2024 TSH, REFLE X FREE T4 TSH 1.05 uIU/m L 0.30-5 .33 Not Available [facility] (Lab) [address], [place], [address], 11/02/2024 09:00:05 10/19/1910/19/2024 ANTIM ULLER KEISHA HORMO NE (AMH) anti-mulleri an hormone (amh) 3.52 NG/mL Femal e Refer ence Range s 20-24 years : 1.22 - 11.70 ng/mL 25-29 years : 0.89 - 9.85 ng/mL 30-34 years : 0.58 - 8.13 ng/mL 35-39 years : 0.15 - 7.49 ng/mL 40-44 years : 0.03 - 5.47 ng/mL The follo wing resul ts were obtai mode with the Ele[employer] assay . Resul ts from assay s of other manuf actur es canno t be used inter [facility]. Not Available [facility] (Lab) [address], [place], [address], 11/02/2024 09:00:06 10/19/1910/19/2024 HUMAN SEX HORMO NE GERALDO NG GLOBU BRIAN sex hormone binding globulin 76.7 nmole s/L 18.2-1 35.5 Not Available [facility] (Lab) [address] [place], [address], 11/02/2024 09:00:06 10/19/1910/19/2024 BETA- 2-GLY COPRO TEIN1 ANTIB SARAHI IGG beta-2 glycoprotein I Ab, IgG <1.4 U/mL 0.0-19 .9 Not Available [facility] (Lab) [address] [place], [address], 11/02/2024 09:00:06 10/19/1910/19/2024 BETA- 2-GLY COPRO TEIN1 ANTIB SARAHI IGG beta-2 glycoprotein I Ab, IgG, qual Negati ve negati ve Not Available [facility] (Lab) [address] [place], [address], 11/02/2024 09:00:06 10/19/1910/19/2024 BETA- 2-GLY COPRO TEIN1 ANTIB SARAHI IGM beta-2 glycoprotein I Ab, IgM <1.5 U/mL 0.0-19 .9 Not Available [facility] (Lab) [address] [facility] [address], [place], [address], 11/02/2024 09:00:07 10/19/19 25 10/19/2024 BETA- 2-GLY COPRO TEIN1 ANTIB SARAHI IGM beta-2 glycoprotein I Ab, IgM, qual Negati ve negati ve Not Available [facility] (Lab) [address], [place], [address], 11/02/2024 09:00:07 10/19/19 25 10/19/2024 CARDI OLIPI N IGG/I GM ANTIB ODIES cardiolipin IgG <1.6 gpl_U /mL 0.0-19 .9 Not Available [facility] (Lab) [address], [place], [address], 11/02/2024 09:00:07 10/19/19 25 10/19/2024 CARDI OLIPI N IGG/I GM ANTIB ODIES cardiolipin IgG, qual Negati ve negati ve Not Available [facility] (Lab) [address] [place], [address], 11/02/2024 09:00:07 10/19/19 25 10/19/2024 CARDI OLIPI N IGG/I GM ANTIB ODIES cardiolipin IgM <1.5 mpl_U /mL 0.0-19 .9 Not Available [facility] (Lab) [address] [place], [address], 11/02/2024 09:00:07 10/19/19 25 10/19/2024 CARDI OLIPI N IGG/I GM ANTIB ODIES cardiolipin IgM, qual Negati ve negati ve Not Available [facility] (Lab) [address] [place], [address], 11/02/2024 09:00:07 10/19/19 25 10/19/2024 LUPUS ANTIC OAGUL ANT EVALU ATION lupus anticoagulan t Negati ve negati ve Not Available [facility] (Lab) [address], [place], [address], 11/02/2024 09:00:07 10/19/19 25 10/19/2024 LUPUS ANTIC OAGUL ANT EVALU ATION prothrombin time (PT) 12.4 secon ds 10.0-1 3.2 Not Available [facility] (Lab) [address], [place], [address], 11/02/2024 09:00:07 10/19/1910/19/2024 LUPUS ANTIC OAGUL ANT EVALU ATION INR 1.0 . 0.9-1. 2 Not Available [facility] (Lab) [address], [place], [address], 11/02/2024 09:00:07 10/19/19 25 10/19/2024 LUPUS ANTIC OAGUL ANT EVALU ATION APTT 27.1 secon ds 24.8-3 8.4 Not Available [facility] (Lab) [address], [place], [address], 11/02/2024 09:00:07 10/19/1910/19/2024 LUPUS ANTIC OAGUL ANT EVALU ATION thrombin time 16.0 secon ds 11.5-1 6.5 Not Available [facility] (Lab) [address] [place], [address], 11/02/2024 09:00:07 10/19/1910/19/2024 LUPUS ANTIC OAGUL ANT EVALU ATION dilute tamara viper venom time (drvvt) test ratio 0.87 ratio <=1.19 Not Available [facility] (Lab) [address] [place], [address], 11/02/2024 09:00:07 10/19/19 25 10/19/2024 LUPUS ANTIC OAGUL ANT EVALU ATION silica clotting time (sct) test ratio 0.91 ratio <=1.16 1. Negat alejandro resul ts do not rule out the prese nce of lupus antic oagul ant due to the limit ation of DRVVT and SCT senst iviti es. 2. Posit alejandro resul ts may confi rm the prese nce of lupus antic oagul ant but also may occur in cases with certa in inter ferin g subst ances such as antic oagul ant thera py. 3. Clini sylvia histo ry as well as other lab resul ts must be caref ully evalu ated befor e makin g a diagn osis. 4. If the Lupus Evalu ation is negat alejandro, and PTT or PT are prolo nged, mixin g studi es shoul d be sough t to inves tigat e facto r defic ienci es or inhib itors . If mixin g studi es are still prolo nged, it may indic ate the prese nce of an inhib itor other than lupus antic oagul ent, or it may sugge st false negat alejandro lupus antic oagul ant resul ts. Not Available [facility] (Lab) [address], [place], [address], 11/02/2024 09:00:07 10/19/1910/19/2024 HEMOG LOBIN A1C hemoglobin A1C 4.8 % 4.0-5. 6 The Ameri can Diabe yuliana Assoc iatio n recom mends that a prima ry goal of thera py lester d be a HBA1C of < 7% and that physi cians shoul d reeva luate the treat ment regim en in patie nts with HBA1C value s consi stent ly > 8%. <5.7% Ilda l 5.7 - 6.4% Incre ased risk for diabe yuliana >=6.5 % Diagn ostic of diabe yuliana <7.0% Goal of thera py >8.0% Actio n sugge sted Not Available [facility] (Lab) [address], [place], [address], 11/02/2024 09:00:08 10/19/1910/19/2024 TESTO STERO NE, FREE( DIALY SIS) AND TOTAL (LC/M S/MS) testosterone , total 28 NG/dL 2-45 For addit ional [facility] refer to http: //reilly son.que stdia gnost ics.c om/fa q/ Total Testo stero neLCM SMSFA Q165 (This link is being provi ded for infor matchris nal/ educa micheal l purpo ses only. ) This test was devel oped and its jaime tical perfo rmanc e daily cteri stics have been deter mined by [employer] [facility]stic s [place], [place]. It has not been clear ed or appro alicja by the U.S. Food and Drug Admin istra tion. This assay has been valid ated pursu ant to the CLIA regul ation s and is used for clini sylvia purpo ses. Not Available [facility] (Lab) [address], [place], [address], 11/02/2024 09:00:08 10/19/1910/19/2024 TESTO STERO NE, FREE( DIALY SIS) AND TOTAL (LC/M S/MS) testosterone , free 2.8 pg/mL 0.1-6. 4 This test was devel oped and its jaime tical perfo rmanc e daily cteri stics have been deter mined by [employer] [place]. It has not been clear ed or appro alicja by the U.S. Food and Drug Admin istra tion. This assay has been valid ated pursu ant to the CLIA regul ation s and is used for clini sylvia purpo ses. Perfo rming Organ izati on [facility] n: Site ID: AMD Name: [id number] laz[address] Insti t[address]elin Addre ss: [id number] [place], [place] Direc tor: Halima Sorensen MD PhD Not Available [facility] (Lab) [address] [place], [address], 11/02/2024 09:00:08 10/19/1910/19/2024 CHROM OSOME JAIME SIS, BLOOD chromosome analsysis, peripheral blood SEE BELOW Order ID: [id number] Speci men Type: Blood Clini sylvia Indic ation : Histo ry of ocula r ward im type 1, RPL RESUL T: ILDA L FEMAL E KARYO TYPE INTER PRETA TION: Chrom osome jaime sis revea led ilda l G-ban d patte rns withi n the limit s of stand tiffany cytog eneti c jaime sis. Pleas e expec t the resul ts of any other concu rrent study in a separ ate repor t. NOMEN CLATU RE: 46,XX ASSAY INFOR MATCHRIS N: Metho d: G-Ban d (Digi gardenia Jaime sis: MetaS ystem s/Ika ros) Cells Count ed: 20 Band Level : 550 Cells Jaime zed: 5 Cells Karyo typed : 4 This test does not addre ss rupesh ic disor ders that canno t be detec edin by stand tiffany cytog eneti c metho ds or rare event s such as low level mosai cism or subtl e rearr angem ents. A porti on of the testi ng was perfo rmed at [employer]. Robin Encarnacion, Ph.D. , [facility] , Techn ical Dire tor, Cytog eneti cs and Genom [facility], [phone] Elect wen Lozano ture: 2024 12:55 PM For addit ional infor yolande n, fredo e refer to http: //[facility] harvinder son.que stdia gnost ics.c om/fa q/chr omsbl ood (This link is being provi ded for infor matchris nal/ educa micheal l purpo ses only) . Test Perfo rmed by Marshall Durant, [facility] [address], [address] , [place], [place] Halima Sorensen M.D., Ph.D. , Dire tor of Labor atori es [phone], CLIA [id number] Perfo rming Organ izati on Infor yolande n: Site ID: AMD Name: [facility] Ronald ls Insti tute Addre ss: [id number] [place], [place] Direc tor: Halima Sorensen MD PhD Not Available [facility] (Lab) [address], [place], [address], 11/02/2024 09:00:09 10/19/19 25 10/19/2024 INHER ITEST CAMERON BEA WHEELER N, SOCIE TY- IDED PANEL (14 GENES ) scan result See Scanne d Result Not Available [facility] (Lab) [address], [place], [address], 11/02/2024 09:00:09 12/24/1912/23/2024 HBSAG /HCV/ HIV/R KS hepatitis C antibody Non-re active non-re active Antib odies to HCV Not Detec edin, does not exclu de the possi bilit y of expos ure to HCV. Not Available [facility] (Lab) [address], [place], [address], 12/24/2024 15:59:32 12/24/19 25 12/23/2024 HBSAG /HCV/ HIV/R KS HIV antigen/anti body Nonrea ctive nonrea ctive HIV-1 antig en and HIV-1 /HIV- 2 antib odies were not detec edin. No labor atory evide nce of HIV infec tion. Not Available [facility] (Lab) [address], [place], [address], 12/24/2024 15:59:32 12/24/19 25 12/23/2024 HBSAG /HCV/ HIV/R KS hepatitis B surface antigen Non-re active non-re active This assay was perfo rmed using [employer] ratio n reage nts and test kits. Value s obtai mode with other assay metho ds or kits canno t be used inter means eably . Not Available [facility] (Lab) [address], [place], [address], 12/24/2024 15:59:32 12/24/19 25 12/23/2024 HBSAG /HCV/ HIV/R [place] RPR qualitative Nonrea ctive nonrea ctive Not Available [facility] (Lab) [address], [place], [address], 12/24/2024 15:59:32 12/24/19 25 12/23/2024 WOMEN 'S HEALT H SWAB PLUS, KATIA bacterial vaginosis (bv), tma Positi ve negati ve abnormal Not Available [facility] (Lab) [address], [place], [address], 12/24/2024 22:18:04 12/24/19 25 12/23/2024 WOMEN 'S HEALT H SWAB PLUS, KATIA laura species, tma Positi ve negati ve abnormal Not Available [facility] (Lab) [address], [place], [address], 12/24/2024 22:18:04 12/24/19 25 12/23/[address] [facility], KATIA laura glabrata, tma Negati ve negati ve Not Available [facility] (Lab) [address] [place], [address], 12/24/2024 22:18:04 12/24/19 25 12/23/2024 WOMEN 'S HEALT H SWAB PLUS, KATIA trichomonas vaginalis, tma Negati ve negati ve Not Available [facility] (Lab) [address] [place], [address], 12/24/2024 22:18:04 12/24/19 25 12/23/2024 WOMEN 'S HEALT H SWAB PLUS, KATIA chlamydia trachomatis, PCR Negati ve negati ve Not Available [facility] (Lab) [address] [place], [address], 12/24/2024 22:18:04 12/24/19 25 12/23/2024 WOMEN 'S HEALT H SWAB PLUS, KATIA neisseria gonorrhoeae, PCR Negati ve negati ve Bacte rial vagin osis detec ts the follo wing bacte elba assoc iated with bacte rial vagin osis (BV): Lacto bacil edouard (L. gasse ri, L. crisp atus and L. jense macy), Gardn erell a vagin jaden, and Atopo bium vagin ae. A singl e quali tativ e resul t is repor edin base on instr ument softw are to deter mine BV posit alejandro or negat alejandro statu s. The [facility] spec[facility] es group tests for C. albic ans, C. tropi calis , C. parap diana is, C. dubli niens is. Testi ng is perfo rmed using the Trans cript ion Media edin Ampli ficat ion metho d. Tests for Maya da glabr mary, Trich omona s vagin jaden, Chlam ydia trach omati s, and Neiss eria gonor rhoea e are also inclu ded in this panel . Not Available [facility] (Lab) [address], [place], [address], 12/24/2024 22:18:04 12/24/1912/23/2024 CULTU RE: URINE result report SEE RESULT S BELOW Test: Cultu re: Urine Speci men Sourc e: Urine - Clean Catch Speci men Type: Urine Speci men Date: 2024 1450 Resul t Date: 2024 2115 Resul t Statu s: Final resul t Abnor mal: No Resul ting Lab: [facility] [address] [facility] [address] Tel: CULTU RE ----- ----- ----- --- No growt h in 1 day (dete ction level of 10,00 0 colon ies / ml.) Not Available [facility] (Lab) [address], [place], [address], 12/24/2024 22:18:04 12/24/19 25 12/23/2024 urina lysis , dipst ick Leukocytes - Not Available [facility] [address], [place], [address], 12/23/2024 12:34:34 12/24/19 25 12/23/2024 urina lysis , dipst ick Nitrite - Not Available [place] [address], [place], [address], 12/23/2024 12:34:34 12/24/19 25 12/23/2024 urina lysis , dipst ick Urobilinogen - Not Available [facility] sd [address], [place], [address], 12/23/2024 12:34:34 12/24/19 25 12/23/2024 urina lysis , dipst ick Protein trace Not Available [place] [address], [place], [address], 12/23/2024 12:34:34 12/24/19 25 12/23/2024 urina lysis , dipst ick pH 6 Not Available [place] [address], [place], [address], 12/23/2024 12:34:34 12/24/19 25 12/23/2024 urina lysis , dipst ick Specific Austin 1.010 Not Available [facility] llyakelin [address], [place], [address], 12/23/2024 12:34:34 12/24/19 25 12/23/2024 urina lysis , dipst ick Ketone - Not Available [place] [address], [place], [address], 12/23/2024 12:34:34 12/24/19 25 12/23/2024 urina lysis , dipst ick Bilirubin - Not Available Eliel hamlin [address], [place], [address], 12/23/2024 12:34:34 12/24/19 25 12/23/2024 urina lysis , dipst ick Glucose - Not Available [place] [address], [place], [address], 12/23/2024 12:34:34 12/24/19 25 12/23/2024 urina lysis , dipst ick Appearance clear Not Available [facility] ced [address], [place], [address], 12/23/2024 12:34:34 12/24/19 25 12/23/2024 urina lysis , dipst ick Color yellow Not Available [place] [address], [place], [address], 12/23/2024 12:34:34 02/23/20 25 02/22/2025 BHCG, QUANT ITATI VE B-HCG 5.9 mIU/m L 0.0-4. 9 high This assay was perfo rmed using [employer] reage nts and test kits. Value s obtai mode with other assay metho ds or kits canno t be used inter means eably . Refer ence Range s: Non-p regna nt, preme nopau jeff women : 0.0-4 .9 mIU/m L Postm enopa usal women : 0.0-7 .0 mIU/m L Ilda l Pregn shirlene: Gesta micheal l Age bHCG Conc. - mIU/m L 3 Weeks 5.8 - 71.7 4 Weeks 9.5 - 750 5 Weeks 217-7 138 6 Weeks 158 - 31,79 5 7 Weeks 3,697 - 162,5 63 8 Weeks 32,06 5 - 149,5 71 9 Weeks 63,80 3 - 151,4 10 10 Weeks 46,50 9 - 186,9 77 12 Weeks 27,83 2 - 210,6 12 14 Weeks 13,95 0 - 62,53 0 15 Weeks 12,03 9 - 70,97 1 16 Weeks 9,040 - 56,45 1 17 Weeks 8,175 - 55,86 8 18 Weeks 8,099 - 58,17 6 Not Available [facility] (Lab) [address], [place], [address], 02/23/2025 05:30:17 02/25/20 25 02/24/2025 BHCG, QUANT ITATI VE B-HCG 14.2 mIU/m L 0.0-4. 9 high This assay was perfo rmed using [employer] reage nts and test kits. Value s obtai mode with other assay metho ds or kits canno t be used inter means eably . Refer ence Range s: Non-p regna nt, preme nopau jeff women : 0.0-4 .9 mIU/m L Postm enopa usal women : 0.0-7 .0 mIU/m L Ilda l Pregn shirlene: Gesta micheal l Age bHCG Conc. - mIU/m L 3 Weeks 5.8 - 71.7 4 Weeks 9.5 - 750 5 Weeks 217-7 138 6 Weeks 158 - 31,79 5 7 Weeks 3,697 - 162,5 63 8 Weeks 32,06 5 - 149,5 71 9 Weeks 63,80 3 - 151,4 10 10 Weeks 46,50 9 - 186,9 77 12 Weeks 27,83 2 - 210,6 12 14 Weeks 13,95 0 - 62,53 0 15 Weeks 12,03 9 - 70,97 1 16 Weeks 9,040 - 56,45 1 17 Weeks 8,175 - 55,86 8 18 Weeks 8,099 - 58,17 6 Not Available [facility] (Lab) [address], [place], [address], 02/25/2025 03:11:38 02/27/20 25 02/26/2025 BHCG, QUANT ITATI VE B-HCG 29.0 mIU/m L 0.0-4. 9 high This assay was perfo rmed using [employer] reage nts and test kits. Value s obtai mode with other assay metho ds or kits canno t be used inter means eably . Refer ence Range s: Non-p regna nt, preme nopau jeff women : 0.0-4 .9 mIU/m L Postm enopa usal women : 0.0-7 .0 mIU/m L Ilda l Pregn shirlene: Gesta micheal l Age bHCG Conc. - mIU/m L 3 Weeks 5.8 - 71.7 4 Weeks 9.5 - 750 5 Weeks 217-7 138 6 Weeks 158 - 31,79 5 7 Weeks 3,697 - 162,5 63 8 Weeks 32,06 5 - 149,5 71 9 Weeks 63,80 3 - 151,4 10 10 Weeks 46,50 9 - 186,9 77 12 Weeks 27,83 2 - 210,6 12 14 Weeks 13,95 0 - 62,53 0 15 Weeks 12,03 9 - 70,97 1 16 Weeks 9,040 - 56,45 1 17 Weeks 8,175 - 55,86 8 18 Weeks 8,099 - 58,17 6 Not Available [facility] (Lab) [address], [place], [address], 02/27/2025 04:39:54 03/09/20 25 03/09/2025 BHCG, QUANT ITATI VE B-HCG 3712.0 mIU/m L 0.0-4. 9 high This assay was perfo rmed using [employer] reage nts and test kits. Value s obtai mode with other assay metho ds or kits canno t be used inter [facility] . Refer ence Range s: Non-p regna nt, preme nopau jeff women : 0.0-4 .9 mIU/m L Postm enopa usal women : 0.0-7 .0 mIU/m L Ilda l Pregn shirlene: Gesta micheal l Age bHCG Conc. - mIU/m L 3 Weeks 5.8 - 71.7 4 Weeks 9.5 - 750 5 Weeks 217-7 138 6 Weeks 158 - 31,79 5 7 Weeks 3,697 - 162,5 63 8 Weeks 32,06 5 - 149,5 71 9 Weeks 63,80 3 - 151,4 10 10 Weeks 46,50 9 - 186,9 77 12 Weeks 27,83 2 - 210,6 12 14 Weeks 13,95 0 - 62,53 0 15 Weeks 12,03 9 - 70,97 1 16 Weeks 9,040 - 56,45 1 17 Weeks 8,175 - 55,86 8 18 Weeks 8,099 - 58,17 6 Not Available [facility] (Lab) [address], [place], [address], 03/10/2025 04:41:12 10/29/19 25 10/29/2024 US, trans vagin al No observ ation record ed. [email or web address] [place] [address], [place], [address], 10/29/2024 18:37:49 10/29/19 25 10/29/2024 US, trans vagin al No observ ation record ed. [email or web address] [address], [place], [address], 10/29/2024 19:32:43 03/17/20 25 03/17/2025 US, obste tric, trans vagin al No observ ation record ed. [email or web address] [place] [address], [place], [address], 03/17/2025 16:47:48 03/17/20 25 03/17/2025 US, obste tric, follo w-up No observ ation record ed. [email or web address] [address], [place], [address], 03/22/2025 14:30:58 Result Notes None recorded. Procedures Surgical History Date Name Laterality Status Provider Name and Address Organization Details Recorded Time 10/29/19 25 SIS completed SHUBHAM RAMSEY MD [address], [place], [address], [place] [facility] 10/29/2024 19:13:12 02/19/20 24 LAPAROSCOPIC OVARIAN CYSTECTOMY (SURG) completed Willem Chang [facility] 02/20/2024 10:52:38 01/09/20 24 Date of Last Pap Smear completed [facility] 01/24/2024 15:21:10 09/02/19 17 operation on external ear completed [facility] 01/24/2024 15:27:16 09/02/19 17 balloon distension of urinary bladder completed [facility] 01/24/2024 15:27:32 Imaging Results None recorded. Procedure Notes None recorded. Medical Equipment None Reported. Allergies Allergen ID Allergen Name Allergen Category Reaction Reaction Severity Criticality Documentation Date Start Date Code Code System Note Provider Name and Address Organization Details Recorded Time 32513 latex environme nt,medica tion Not available Not available Not available 01/24/2024 18836 91 RxNorm [facility] 15:20:33 Medications Name Sig Start Date Stop Date Status Note LastModified by Organization Details LastModified Time fluconazole 150 mg tablet TAKE 1 TABLET BY MOUTH EVERY 72 HOURS active Not Available Not Available No t Available minocycline 100 mg capsule TAKE 1 CAPSULE BY MOUTH EVERY 12 HOURS 12/23 completed Not Available Not Available Not Available fluconazole 200 mg tablet 01/23 completed Not Available Not Available Not Available metronidazo le 0.75 % (37.5 mg/5 gram) vaginal gel INSERT 1 APPLICATO RFUL VAGINALLY EVERY DAY FOR 5 DAYS active Not Available Not Available No t Available metronidazo le 500 mg tablet Take 1 tablet twice a day by oral route for 7 days. 12/23 completed Not Available Not Available Not Available oxycodone-a cetaminophe n 5 mg-325 mg tablet TAKE 1 TABLET BY MOUTH EVERY 6 HOURS 08/11 completed Not Available Not Available Not Available doxycycline monohydrate 100 mg capsule 01/23 completed Not Available Not Available Not Available cephalexin 500 mg capsule TAKE 1 CAPSULE BY MOUTH EVERY 6 HOURS FOR 5 DAYS active Not Available Not Available No t Available naproxen sodium 550 mg tablet TAKE 1 TABLET BY MOUTH EVERY 12 HOURS NEEDED FOR PAIN active Not Available Not Available No t Available misoprostol 200 mcg tablet INSERT ALL 4 PILLS VAGINALLY FOR ONE DOSE 06/17 completed Not Available Not Available Not Available benzoyl peroxide 5 % topical cleanser APPLY THIN LAYER TOPICALLY TO THE AFFECTED AREA DAILY 06/17 completed Not Available Not Available Not Available methylpredn isolone 4 mg tablets in a dose pack FOLLOW PACKAGE DIRECTION S active Not Available Not Available No t Available ondansetron 4 mg disintegrat ing tablet 01/23 completed Not Available Not Available Not Available nitrofurant oin monohydrate /macrocryst als 100 mg capsule TAKE 1 CAPSULE BY MOUTH TWICE DAILY FOR 5 DAYS active Not Available Not Available No t Available Vitals Date Recorded Body height Body mass index (BMI) Body weight Systolic And Diastolic Provider Name and Address Organization Details Last Updated DateTime 10/19/2024 172.72 cm 24 kg/m2 19473.59 g 136/71 mm[Hg] Hannah Garcia [facility] 10/19/2024 11:58:43 Date Recorded Body height Body mass index (BMI) Body weight Systolic And Diastolic Provider Name and Address Organization Details Last Updated DateTime 12/23/2024 172.72 cm 23.7 kg/m2 53036.13 g 124/82 mm[Hg] Kathy Mary Alice [facility] 12/23/2024 12:31:41 Social History Question Answer Notes LastModified by Organizat ion Details LastModified Time Tobacco Smoking Status Current Every Day Smoker Hannah Garcia [facility] 01/24/2024 15:26:38 Are You Blind Or Do You Have Difficulty Seeing? No Information n ot available 01/24/2024 In The 14 Days Before Symptom Onset, Have You Had Close Contact With A Laboratory-confirm ed COVID-19 While That Case Was Ill? No Information n ot available 01/24/2024 In The 14 Days Before Symptom Onset, Have You Had Close Contact With A Person Who Is Under Investigation For COVID-19 While That Person Was Ill? No Information not available 01/24/2024 Have You Been To An Area Known To Be High Risk For COVID-19? No [email or web address] Information not available 01/24/2024 Are You Deaf Or Do You Have Serious Difficulty Hearing? No [email or web address] Information not available 01/24/2024 Do You Use Your Seat Belt Or Car Seat Routinely? Yes Information not available 01/24/2024 Are You Sexually Active? Yes [email or web address] Information not available 01/24/2024 Do You Have Smoke And Carbon Monoxide Detectors In Your Home? Yes [email or web address] Information not available 01/24/2024 Do You Use Sunscreen Routinely? Yes [email or web address] Information not available 01/24/2024 Do You Have Difficulty Walking Or Climbing Stairs? No [email or web address] Information not available 01/24/2024 Sex: Unknown Functional Status Question Answer Note LastModified by Organizat ion Details LastModified Time Are you able to walk? YESWOREST [email or web address] Information not available 01/24/2024 Are you able to care for yourself independently? Yes [email or web address] Information not available 01/24/2024 Do you have difficulty dressing, bathing, grooming, or toileting? No [email or web address] Information not available 01/24/2024 Mental Status None recorded. Family History Relationship Description Onset Age of this Age Resolved Age Notes LastModified by Organization Details LastModified Time Mother Anemia [email or web address] Not available 01/24/2024 15:23:26 Mother Mental disorder [email or web address] Not available 2023 15:25:54 Maternal Grandfather Diabetes mellitus Not available 2023 15:24:51 Maternal Grandfather Hypercholest erolemia [email or web address] Not available 2023 15:25:15 Maternal Grandmother Uterine prolapse [email or web address] Not available 2023 16:30:11 Medical History Condition Response Allergies (Food, seasonal, environmental ) N Other N Breast Cancer N Drug/Latex Allergies/Reactions N Blood Transfusion N Dermatologic Disorders N Lung Disease N Defects or Inherited Disease N Breast Problem N Gestational Diabetes N Hematologic disorders N Anesthesia Complications N History of STI N Deep Vein Thrombosis N Polycystic ovary syndrome N Anxiety Disorder N Autoimmune disease N Arthritis N Infertility N Polyps N Acid Reflux (GERD) N History of abnormal pap N Cancer N Stroke N Varicosities N Neurologic/Epilepsy N Endometriosis N High Cholesterol N Headaches N Fibromyalgia N Kidney Disease N Heart Problems N Kidney or Bladder Problems N Thyroid Problems N GI Problems N Eating Disorder N Anemia N Art (IVF or FET) N Psychiatric Illness N Ovarian Cancer N Diabetes N Pulmonary (TB, Asthma) N Hepatitis/Liver Disease N No Past Medical History N Eczema N Urinary Tract Infection N Abuse/Domestic Violence N Asthma N Trauma/Violence N Depression/ depression N Heart Disease N Pre-Eclampsia N Hypertension N Osteoporosis N Thrombophilias N Gynecological History Statement/Question Response Abnormal Pap N Flow Heavy Date of LMP 12/03/2024 Was last menstrual period normal N STIs/STDs N Duration of Flow (days) 4 Current Control Method Withdrawal Are cycles usually normal Y Frequency of Cycle (Q days) 14 Sexually Active? Y Menses Monthly Y Age of first menstrual cycle 11 Date of Last Pap Smear 01/09/2024 Sexual Problems? N LMP Definite Obstetrics History GPAL:G 2 P 0 0 1 1 Type Value Spontaneous 1 Living 1 Total 2 Past Encounters Encounter ID Performer Location Encounter Start Date Encounter Closed Date Diagnosis/Indication Diagnosis SNOMED-CT Code Diagnosis ICD10 Code Diagnosis Note [id number] Juancho Stokes MD [place] [address] [address] 01/24/2024 14:37:59 01/25/2024 11:34:48 Pain in pelvis 14625400 R10.2 Cyst of ovary 76178121 N 83.209 this patient is a 23-year-ol d female with pelvic pain and ovarian cyst. She was recently in the emergency department . She has to substantia lly sized ovarian cyst bilaterall y. They are both round 5 cm. She continues to have some pain. It has been present for 3 weeks. We talked about the etiology, treatment, natural history of ovarian cyst. We reviewed images of normal ovaries and cystic ovaries. Talked about polycystic ovarian syndrome and how it is not apply to her. She is regular periods and she has premenstru al symptoms. Clearly ovulatory cycles. Discussed a treatment plan and options going forward. Her pain appears to be modest today. We talked about follow-up. Talked about precaution s for torsion. We agreed to repeat ultrasound in about a week and meet after that. We spent over 40 minutes face-to-fa ce. More than 50% was counseling . [id number] Juancho Stokes MD [place] [address],[facility] [place] [address] 01/30/2024 15:15:35 01/30/2024 15:57:32 Cyst of right ovary 4075541363 3695336 N83.291 [id number] Juancho Stokes MD [place] [address],[place] [address] 01/30/2024 15:15:55 01/31/2024 02:35:31 Cyst of right ovary 0231008068 5784237 N83.291 23-year-ol d female with painful right ovarian cyst. We agreed perform laparoscop ic right ovarian cystectomy . She understand s risks, benefits, and alternativ es. She is completed the informed consent process and is ready to proceed. We spent more than 40 minutes face-to-fa ce. More than 50% was counseling . We reviewed ultrasound images. We talked about surgery. We talked about risks. We made a decision to perform surgery. [id number] Juancho Stokes MD [place] [address],[place] [address] 02/27/2024 10:56:55 02/27/2024 11:33:12 Postoperative care 304994340 Z48.89 This patient is a 40-year-ol d female who presents for postop follow-up. She is 1 week postop from a laparoscop ic Ovarian cystectomy . Her incisions are clean dry and intact. She has no complaints . She is recovering normally. She will follow up as needed. [id number] Lida Taylor CNM [place] [address],[place] [address] 03/20/2024 15:50:37 03/20/2024 16:10:24 Urinary symptoms 202967483 R39.9 Urinary tr act infectious disease 32203607 N39.0 [id number] Juancho Stokes MD [place] [address],[place] [address] 04/03/2024 14:27:24 04/03/2024 16:07:12 Abnormal uterine bleeding 4461560829 9100 N93.9 Acne [id number] L70.9 [id number] Juancho Stokes MD [place] [address] [address] 04/13/2024 11:23:12 04/13/2024 12:11:29 Abnormal uterine bleeding 5839645571 9100 N93.9 [id number] Juancho Stokes MD [place] [address] [address] 04/13/2024 11:23:33 04/13/2024 14:43:55 Irregular periods 82603005 N92.6 23-year-ol d female presents for ultrasound follow-up. Patient has a thickened endometriu m. It appears to be thickened in her right cornua. No discrete masses or vascularit y. We discussed this finding. I shared some images with her. We talked about the possible treatment options here. She continues to bleed irregularl y. Patient's recent blood work suggest possible ovulation with LH surge. We reviewed her laboratory evaluation . Her testostero ne is still pending. We talked about possible solutions for treating her abnormal uterine bleeding. She may have recently ovulated and therefore we agreed to observe to see if she had a real menses. We will repeat ultrasound after her menses to see if thickening has resolved. Spent over 30 minutes on her care in total. Reviewed ultrasound , reviewed laboratory results, medical decision making, counseling . [id number] Juancho Stokes MD [place] [address] [address] 05/22/2024 16:30:02 05/23/2024 11:26:31 Uncertain viability of [id number] O36.80X0 Z3A.01 [id number] SHUBHAM RAMSEY MD [place] [address] [address] 05/26/2024 10:29:37 05/26/2024 18:00:04 Missed miscarriage 39502325 O02.1 - hCG decreasing from 12,000 to 9761- pelvic US 05/22 c/w blighted ovum, no YS or FP seen- discussed management options and risks of expectant vs medical vs surgical management - patient desires repeat US prior to management - would like to proceed with medical management with cytotec if US confirms blighted ovum. [id number] Juancho Stokes MD [place] [address],[place] [address] 06/03/2024 16:15:02 06/03/2024 16:55:12 Retained products of conception 932741995 O72.2 [id number] SHUBHAM RAMSEY MD [place] [address],[place] [address] 06/03/2024 17:43:40 06/08/2024 10:12:07 Retained products of conception with no hemorrhage 2178600197 O73.1 - s/p 2 rounds of cytotec for missed miscarriag e- patient reports minimal bleeding following either dosage of cytotec- pelvic US today demonstrat es retained products of conception - recommend suction D&C for removal of retained POC- discussed risks of surgery, including bleeding, infection, and injury to adjacent structures - patient would like to proceed with suction D&C [id number] Juancho Stokes MD [place] [address],[place] [address] 06/08/2024 14:00:41 06/08/2024 14:34:51 Missed miscarriage [id number] O02.1 O72.2 [id number] SHUBHAM RAMSEY MD [place] [address],[place] [address] 06/17/2024 14:44:18 06/17/2024 15:57:12 Postoperative visit 284044096 Z48.89 - s/p D&C 06/09 for missed miscarriag e- meeting post op milestones - no tissue found on pathology, likely passed prior to surgery with large amount of bleeding patient reports- considerin g IUD for control, will call when she decides [id number] SHUBHAM RAMSEY MD [place] [address],[place] [address] 08/11/2024 14:03:45 08/11/2024 17:07:26 Venereal disease screening 121327983 Z11.3 - urine STD screening and UTI screening sent as well Abnormal u terine bleeding 4539476282 9100 N93.9 - likely 2/2 recent D&C- discussed that cycles can take a while to normalize following D&C- if still abnormal in 6 months, could consider pelvic US or SIS to evaluate for scar tissue per patient concerns [facility] [id number] Z30.9 - desires Nuvaring, has used in the past with good results- will send rx when hCG results [id number] MD Hamida SH[facility] [address] [address] 10/19/2024 11:51:11 10/22/2024 02:34:04 Recurrent miscarriage 827517023 N96 - s/p 2 consecutiv e miscarriag es- hx of 1 in 2018- POC not sent on suction D&C in 06/2024 due to lack of tissue- discussed potential causes of recurrent miscarriag es including APLS, thyroid disease, diabetes, structural (polyps, fibroids, mullerian anomalies, scar tissue), abnormal parental karyotypes .- recommend APLS workup, TSH, HgbA1c, karyotype and SIS to evaluate for causes of recurrent miscarriag es- patient to return for SIS Venereal d isease screening 650591821 Z11.3 [id number] MD Irene [place] [address],[place] [address] 10/29/2024 13:57:37 10/29/2024 15:03:16 Recurrent miscarriage 178183321 N96 - s/p 2 consecutiv e miscarriag es- hx of 1 in 2018- POC not sent on suction D&C in 06/2024 due to lack of tissue- discussed potential causes of recurrent miscarriag es including APLS, thyroid disease, diabetes, structural (polyps, fibroids, mullerian anomalies, scar tissue), abnormal parental karyotypes .- recommend APLS workup, TSH, HgbA1c, karyotype and SIS to evaluate for causes of recurrent miscarriag es- patient to return for SIS [id number] SHUBHAM RAMSEY MD [place] [address],[place] [address] 10/29/2024 13:59:10 10/30/2024 13:31:25 Recurrent miscarriage [id number] N96 - s/p 2 consecutiv e miscarriag es- hx of 1 in 2018- POC not sent on suction D&C in 06/2024 due to lack of tissue- discussed potential causes of recurrent miscarriag es including APLS, thyroid disease, diabetes, structural (polyps, fibroids, mullerian anomalies, scar tissue), abnormal parental karyotypes .- APLS workup, TSH, HgbA1c, and karyotype in progress- SIS normal, no evidence of Asherman's or uterine synechiae [id number] Juancho Stokes MD [place] [address] [address] 12/23/2024 12:14:36 12/23/2024 12:57:59 Urinary system finding 173041333 R39.9 Patient presents with symptoms of UTI. Results of dipstick were negative for UTI. Advised to drink clear fluids, Tylenol for pain and take prescribed medication s as instructed . Patient encouraged to follow up within 1 week if not improving. Urine culture sent. With history of interstiti al cystitis, counseled patient on foods and triggers to avoid. Venereal d isease screening 191111641 Z11.3 Pt requested STI testing.Di scussed the various types of STDs, related symptoms and the potential consequenc es (including effects on fertility) of STD infections . Reviewed ways to limit exposure and prevention techniques . Vaginal discharge [id number] 006 N89.8 Discussed empirical treatment with fluconazol e for suspected yeast infection based on reported symptoms and physical exam findings.D iscussed vulvar care guidelines in addition to laundry/sk in irritants to avoid.Vagi nitis panel sent. [id number] Juancho Stokes MD [place] [address] [address] 03/17/2025 10:56:45 03/17/2025 11:39:32 care: poor obstetric history [id number] O09.291 O36.80X0 Z3A.01 Health Concerns Section Related Observation LastModified by Organization Detai ls LastModified Time None Recorded Concern Status LastModified by Organization Details LastModified Time None Recorded Advance Directives Directive None Recorded Payers Insurance Date Sequence Insurance Name Policy Number Policy Tran Covered Member ID Tran Member ID Guarantor Name 03/14/2025 2 [place] [facility] Tameka Heart [id number] Tameka Heart 03/28/[address] [facility] [id number] Anthony Heart [id number] Tameka [facility] Notes Date Note Type Note Provider Name and Address Organization Details Recorded Time 10/19/2024 text/html ROS as noted in the HPI Patient presents for discussion of recurrent miscarriage. Patient is s/p suction D&C on 06/09 for retained products. She then had a chemical during this most recent cycle. She reports bleeding has stopped, no abdominal pain, fevers or chills. Overall feeling well. This is her second consecutive miscarriage. She has a history of one successful , uncomplicated. Her medical history is overall uncomplicated. Her PSH is significant for suction D&C as above. She has no family history of infertility, developmental delay or autism. She has not undergone karyotype testing. She is unsure of her current plans, however is concerned that she may have difficulty conceiving due to her hx. 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 She would also like to pursue BV/STD testing today. SHUBHAM RAMSEY MD [address], [place], [address], [facility] 10/22/2024 00:22:39 10/29/2024 text/html Patient presents for SIS indicated for recurrent miscarriage. SHUBHAM RAMSEY MD [address], [place], [address], [facility] 10/29/2024 19:16:26 12/23/2024 text/html 24 y/o female presents with c/o pelvic pressure, dysuria, frequency, vaginal itching, and white discharge x one week.Patient reports history of IC, but she states that her symptoms are worsening.Patient states that she took two days worth of leftover cephalexin and felt better temporarily.Denies fever, chills, back pain.Patient states that she had new sexual partner recently. Requests STI testing. Kathy connelly, [facility] 12/23/2024 13:09:21 OBGyn Episode Ob Episode Information Episode Created Date Number of Fetuses Patient Bloodtype Patient rh Status Prepregnancy Weight lbs Domestic Partner Domestic Partner Phone Father Name Fleet Administrator Status 01/24/20 24 1 CLOSED Fetus Data First Name Last Name Admitted to NICU Weight (g) Sex Living Outcome Pediatric Complications Fetus ID Race Codes Race Delivery Type 3883.65 [id number] F Full Term [id number] Vaginal Delivery Duarte Calculation Initial Duarte Date Initial Exam Date Initial Exam Provider Initial Ultrasound Date Last Menstrual Period Date Ultra Sound Weeks Gestation 0 Eighteen To Twenty Week Duarte Update Ultra Sound Date Fundal Height At Umbil Quickening Date Ultra Sound Latest Weeks Gestation Final Duarte Confirmed By Final Duarte Confirmed Date Final Duarte Date Ultra Sound Latest Days Gestation 0 0 Menstrual History Last Menstrual Date Menses Monthly On Bcp Conception Prior Menses Frequency Hcg Plus Date Menarche Onset Age Delivery Information Delivery Date Delivery Type Labor Anesthesia Weeks Gestation Incision Type Labor Labor Length Hrs Delivered By Post Complications Tubal Sterilization Discharge Date Comments 9 Discharge Information Feeding Method Contraceptive Method Maternal HG B and HCT Levels Ob Episode Information Episode Created Date Number of Fetuses Patient Bloodtype Patient rh Status Prepregnancy Weight lbs Domestic Partner Domestic Partner Phone Father Name Fleet Administrator Status 01/24/20 24 1 CLOSED Fetus Data First Name Last Name Admitted to NICU Weight (g) Sex Living Outcome Pediatric Complications Fetus ID Race Codes Race Delivery Type , Spontane ous [id number] Duarte Calculation Initial Duarte Date Initial Exam Date Initial Exam Provider Initial Ultrasound Date Last Menstrual Period Date Ultra Sound Weeks Gestation 0 Eighteen To Twenty Week Duarte Update Ultra Sound Date Fundal Height At Umbil Quickening Date Ultra Sound Latest Weeks Gestation Final Duarte Confirmed By Final Duarte Confirmed Date Final Duarte Date Ultra Sound Latest Days Gestation 0 0 Menstrual History Last Menstrual Date Menses Monthly On Bcp Conception Prior Menses Frequency Hcg Plus Date Menarche Onset Age Delivery Information Delivery Date Delivery Type Labor Anesthesia Weeks Gestation Incision Type Labor Labor Length Hrs Delivered By Post Complications Tubal Sterilization Discharge Date Comments 1 Discharge Information Feeding Method Contraceptive Method Maternal HG B and HCT Levels Ob Episode Information Episode Created Date Number of Fetuses Patient Bloodtype Patient rh Status Prepregnancy Weight lbs Domestic Partner Domestic Partner Phone Father Name Fleet Administrator Status 02/23/20 25 1 CLOSED Fetus Data First Name Last Name Admitted to NICU Weight (g) Sex Living Outcome Pediatric Complications Fetus ID Race Codes Race Delivery Type , Spontane ous [id number] Duarte Calculation Initial Duarte Date Initial Exam Date Initial Exam Provider Initial Ultrasound Date Last Menstrual Period Date Ultra Sound Weeks Gestation 0 Eighteen To Twenty Week Duarte Update Ultra Sound Date Fundal Height At Umbil Quickening Date Ultra Sound Latest Weeks Gestation Final Duarte Confirmed By Final Duarte Confirmed Date Final Duarte Date Ultra Sound Latest Days Gestation 0 0 Menstrual History Last Menstrual Date Menses Monthly On Bcp Conception Prior Menses Frequency Hcg Plus Date Menarche Onset Age Delivery Information Delivery Date Delivery Type Labor Anesthesia Weeks Gestation Incision Type Labor Labor Length Hrs Delivered By Post Complications Tubal Sterilization Discharge Date Comments 5 Discharge Information Feeding Method Contraceptive Method Maternal HG B and HCT Levels
--- OUTSIDE RECORDS SUMMARY | 2025-03-28 10:14 | XMS_ITS | Clinical Summary ---
Author Organization [place] [id number] [facility] Address [address] [place] [address] Care Team Providers Care Exhibitions And Collections Manager Name Role Phone Dario Muñoz MD Primary Care Provider [phone] Allergies Active Allergy Reactions Criticality Noted Date Comments Latex Rash Medium 07/07/2023 Medications No known medications Active Problems Problem Noted Date Diagnosed Date Encounter for physical examination related to em ployment 08/05/2023 Assessment & Plan (08/05/2023 3:36 PM CVT TECH): OK for clearance if negative PPD read, patient to RTC in 48-72 hours for read Acute cystitis without hematuria 10/16/2022 Rectal bleeding 10/16/2022 Nausea 07/13/2022 Assessment & Plan (07/13/2022 8:28 AM CVT TECH): Acute, likely infectious, as 2 of her coworkers are out sick with the f noel-declined medication for nausea. Discussed clear liquid diet verses small frequent meals consisting of bland foods. Unexplained weight loss 07/13/2022 Assessment & Plan (07/13/2022 8:26 AM CVT TECH): New concern, however chart does not reflect significant weight loss in the past 9 months (has lost approximately 8.5 lb)-ordered lab work, nonfasting, and advised follow-up with PCP to further discuss her concern. Advised is at a healthy BMI for height. Acute bilateral upper abdominal pain 07/13/2022 Assessment & Plan (07/13/2022 8:29 AM CVT TECH): Acute, likely infectious, as 2 of her coworkers are out sick with f noel, symptom also accompanied by nausea with diarrhea-declined medication for nausea. Discussed clear liquid diet verses small frequent meals consisting of bland foods. Diarrhea 07/13/2022 Assessment & Plan (07/13/2022 8:28 AM CVT TECH): Acute, likely infectious, as 2 of her coworkers are out sick with f noel-declined medication for nausea. Discussed clear liquid diet verses small frequent meals consisting of bland foods. test positive 01/15/2022 Tobacco use disorder 01/15/2022 Assessment & Plan (01/15/2022 12:05 PM CDT): Tobacco Cessation counselling for more than 10minutes being provided. Discussed adverse effects on . Burning with urination 10/12/2021 Assessment & Plan (10/12/2021 3:21 PM CVT TECH): Fjbyo-po-ocakpl urine test is suggestive of UTI, will send out for a urine culture to confirm. See plan of care for leukocytes in urine. Cloudy urine 10/12/2021 Assessment & Plan (10/12/2021 3:21 PM CVT TECH): New sfofhxd-gq-vkstgh urine test is suggestive of UTI, will send out for a urine culture to confirm. See plan of care for leukocytes in urine. Leukocytes in urine 10/12/2021 Assessment & Plan (10/12/2021 3:22 PM CVT TECH): Acute-started on Keflex 500 mg BID x 7 days. Advised can also use Azo as directed for 48 hours as needed for relief of discomfort with voiding. Instructed to increase fluid intake, but to avoid excessive caffeine, spicy foods, and acidic foods and beverages such as citrus fruits/juices, tomato products, soda, and alcohol as these may be bladder irritants. Recommended follow-up with PCP if symptoms worsen, don't improve, or new symptoms develop. Amenorrhea 10/12/2021 Assessment & Plan (10/12/2021 3:23 PM CVT TECH): New problem, states she is not sure when she had her last menses and that she might be , already gave urine specimen for urine POCT for symptoms of dysuria-ordered serum hCG quantitative. Menorrhagia with irregular cycle 08/30/2021 Assessment & Plan (08/30/2021 9:45 AM CVT TECH): Overall Condition Chronic Condition: Uncontrolled and unclear diagnosis. Treatment: New Medication: Monophasic Oral contraception in moderate anovulatory bleeding. 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: emergency vehicle dispatcher Follow up in 3 months Immunizations Immunization Administration Dates Next Due DTaP 07/03/2000,02/08/2000,1999 Hep B / HiB 07/03/2000,1999 Hep B, Adolescent or Pediatric 1999 HiB 02/08/2000 IPV 02/08/2000,1999 MMR 12/01/2018,10/17/2000 PPD TEST 08/10/2023,01/15/2022 Pneumococcal Conjugate 7-Valent 10/17/2000,07/03 Varicella 10/17/2000 Medical History Medical History Date Comments Anxiety Depression Ovarian cyst Family History Medical History Relation Name Comments Crohn's disease Father Depression Father Anxiety disorder Mother Bipolar disorder Mother Relation Name Status Comments Father Alive Mother Alive Social History Tobacco Use Types Packs/Day Years Used Date Smoking Tobacco: Every Day Vaping Tobacco Cessation:Ready to Q uit: Not Asked; Counseling Given: Not Answered AUDIT-C Answer Date Recorded Q1: How often do you have a drink containing alc ohol? Monthly or less 10/16/2022 Q2: How many drinks containi ng alcohol do you have on a typical day when you are drinking? 1 or 2 10/16/2022 Q3: How often do you have si x or more drinks on one occasion? Never 10/16/2022 PHQ-2 Answer Date Recorded PHQ-2 Total Score (If total score is 3 or more points, staff should administer the PHQ-9) 0 10/16/2022 Personal Safety Answer Date Recorded Have you ever been in or are you currently in a harmful physical or emotional relationship or is someone making you feel afraid or unsafe? Denies 05/23/2024 Comments No Sex and Gender Information Value Date Recorded Sex Assigned at Not on file Legal Sex Female 7:10 PM CVT TECH Gender Identity Female 07/12/2022 1:45 PM CVT TECH Sexual Orientation Not on file Obstetrics History Para Term AB IAB SAB Ectopic Multiple Livin g Live Births 1 Date Outcome GA Total Labor Labor/2nd/3rd Weight Sex Type Anes PTL Lani A1 A5 Name Clin Last Filed Vital Signs Vital Sign Reading Time Taken Comments Blood Pressure 124/82 05/23/2024 2:56 PM CDT Pulse 94 05/23/2024 2:56 PM CDT Temperature 37.1 C (98.8 F) 05/23/2024 2:56 PM CDT Respiratory Rate 16 05/23/2024 2:56 PM CDT Oxygen Saturation 99% 05/23/2024 2:56 PM CDT Inhaled Oxygen Concentration - - Weight 70.5 kg (155 lb 6.8 oz) 05/23/2024 2:56 P M CDT Height 172.7 cm (5' 8) 05/23/2024 2:56 PM CDT Body Mass Index 23.63 05/23/2024 2:56 PM CDT Plan of Treatment Health Maintenance Due Date Last Done Comments Hepatitis C Screening 1999 Varicella Vaccines (2 of 2 - 2-dose childhood series) 2003 10/17/2000 Pneumococcal vaccine <65 (1 of 1 - PPSV23) 2005 10/17/2000, 07/03/2000 DTaP/Tdap/Td Vaccine (4 - Tdap) 2010 07/03/2000, 02/08/2000, 1999 HPV Vaccines (1 - 3-dose series) 2014 Cervical Cancer Screening 03/09/2020 03/09/2019 Regular Well Visit/Exam 18-64 08/30/2022 08/30/2021 Depression Screening 10/16/2023 10/16/2022, 08/30/2021, 08/30/2021 Influenza Vaccine (#1) 2025 Hepatitis B Screening Completed 07/03/2000 , 1999, 1999 Procedures Procedure Name Priority Date/Time Associated Diagnosis Comments PAP WITH REFLEX TO HIGH RISK HPV Routine 03/09/2019 from Last 3 Months or Most Recently Relevant to Health Maintenance Results * Pap with reflex to High Risk HPV (03/09/2019) Thin prep 03/09/2019 us Historical Provider LAB CYTOLOGY ORDERABLES F inal Result from Last 3 Months or Most Recently Relevant to Health Maintenance Insurance [employer] Member Subscriber Plan / Payer (Ef fective 2018-Present) Name:Tameka Heart Relation to Subscriber:Self Name:Tameka Heart Payer ID:[id number] Group ID:Not on file Type:MEDICAID [place] Address: [place] [id number] [employer] Care Teams Exhibitions And Collections Manager Relationship Specialty Start Date End Date Dario Muñoz MD PCP - General Family Medicine 08/30/21
--- OUTSIDE RECORDS SUMMARY | 2025-03-28 10:14 | XMS_ITS | Referral Summary ---
Author Organization [place] [id number] [facility] Address [address] [place] [address] Care Team Providers Care Sales Office Manager Name Role Phone Dario Muñoz MD Primary Care Provider [phone] Allergies Active Allergy Reactions Criticality Noted Date Comments Latex Rash Medium 07/07/2023 Medications No known medications Active Problems Problem Noted Date Diagnosed Date Encounter for physical examination related to em ployment 08/05/2023 Assessment & Plan (08/05/2023 3:36 PM SURGEON PARTNER): OK for clearance if negative PPD read, patient to RTC in 48-72 hours for read Acute cystitis without hematuria 10/16/2022 Rectal bleeding 10/16/2022 Nausea 07/13/2022 Assessment & Plan (07/13/2022 8:28 AM SURGEON PARTNER): Acute, likely infectious, as 2 of her coworkers are out sick with the f noel-declined medication for nausea. Discussed clear liquid diet verses small frequent meals consisting of bland foods. Unexplained weight loss 07/13/2022 Assessment & Plan (07/13/2022 8:26 AM SURGEON PARTNER): New concern, however chart does not reflect significant weight loss in the past 9 months (has lost approximately 8.5 lb)-ordered lab work, nonfasting, and advised follow-up with PCP to further discuss her concern. Advised is at a healthy BMI for height. Acute bilateral upper abdominal pain 07/13/2022 Assessment & Plan (07/13/2022 8:29 AM SURGEON PARTNER): Acute, likely infectious, as 2 of her coworkers are out sick with f noel, symptom also accompanied by nausea with diarrhea-declined medication for nausea. Discussed clear liquid diet verses small frequent meals consisting of bland foods. Diarrhea 07/13/2022 Assessment & Plan (07/13/2022 8:28 AM SURGEON PARTNER): Acute, likely infectious, as 2 of her [...] 10/12/2021 Assessment & Plan (10/12/2021 3:21 PM SURGEON PARTNER): Uluda-ud-vovyqt urine test is suggestive of UTI, will send out for a urine culture to confirm. See plan of care for leukocytes in urine. Cloudy urine 10/12/2021 Assessment & Plan (10/12/2021 3:21 PM SURGEON PARTNER): New ascohvb-fi-ukuwjf urine test is suggestive of UTI, will send out for a urine culture to confirm. See plan of care for leukocytes in urine. Leukocytes in urine 10/12/2021 Assessment & Plan (10/12/2021 3:22 PM SURGEON PARTNER): Acute-started on Keflex 500 mg BID x [...] 10/12/2021 Assessment & Plan (10/12/2021 3:23 PM SURGEON PARTNER): New problem, states she is not sure when she had her last menses and that she might be , already gave urine specimen for urine POCT for symptoms of dysuria-ordered serum hCG quantitative. Menorrhagia with irregular cycle 08/30/2021 Assessment & Plan (08/30/2021 9:45 AM SURGEON PARTNER): Overall Condition Chronic Condition: Uncontrolled and unclear diagnosis. Treatment: New Medication: Monophasic Oral contraception in moderate anovulatory bleeding. 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: agricultural commodities inspector Follow up in 3 months Immunizations Immunization Administration Dates Next Due DTaP 07/03/2000,02/08/2000,1999 Hep B / HiB 07/03/2000,1999 Hep B, Adolescent or Pediatric 1999 HiB 02/08/2000 IPV 02/08/2000,1999 MMR 12/01/2018,10/17/2000 PPD TEST 08/10/2023,01/15/2022 Pneumococcal Conjugate 7-Valent 10/17/2000,07/03 Varicella 10/17/2000 Social History Tobacco Use Types Packs/Day Years [...] on file Legal Sex Female 7:10 PM SURGEON PARTNER Gender Identity Female 07/12/2022 1:45 PM SURGEON PARTNER Sexual Orientation Not on file Last Filed [...] 05/23/2024 2:56 PM CDT Plan of Treatment Not on file Procedures Procedure Name Priority Date/Time Associated Diagnosis Comments PAP WITH REFLEX TO HIGH RISK HPV Routine 03/09/2019 from Last 3 Months or Most Recently Relevant to Health Maintenance Results * Pap with reflex to High Risk HPV (03/09/2019) Thin prep 03/09/2019 Historical Provider LAB CYTOLOGY ORDERABLES F inal Result from Last 3 Months or Most Recently Relevant to Health Maintenance Insurance [employer] Care Teams Sales Office Manager Relationship Specialty Start Date End Date Dario Muñoz MD PCP - General Family Medicine 08/30/21
--- OUTSIDE RECORDS SUMMARY | 2025-03-28 10:15 | XMS_ITS | Data Portability ---
Author Organization [employer] , [facility] Address [address] [place] [address] Assessment No assessment recorded. Plan of Treatment Reminders Order Date Submit Date Provider Last Modified By Organization Details Last Modified Time Details Appointments None recorded. Lab lh + FSH, serum 2023 Neteven Dwayne, [address] [place], [address], 4 11:04:41 hemoglobin A1c, QN, blood 2023 024 [employer], [address] [place], [address], 4 11:04:39 prolactin, serum 2023 024 [employer], [address] [place], [address], 4 11:04:38 progesteron e, serum 2023 024 [employer], [address] [place], [address], 4 11:09:38 testosteron e, free, serum 2023 024 [facility], [address] [facility], [place], [address], 4 00:52:20 testosteron e, total, serum 2023 024 [facility], [address] [place], [address], 4 00:52:21 estradiol, serum 2023 024 [facility], [address] [place], [address], 4 00:52:20 beta-HCG, quantitativ e, serum or plasma 2023 024 [facility] [place], [address] [place] [address], [address], 4 11:04:45 TSH, serum, reflex free T4 2023 024 [facility], [address] [place] [address], [address], 4 11:04:46 urinalysis, dipstick 2023 024 0 [facility], [address] [place], [address], 4 16:16:30 bacterial vaginosis + vaginitis panel, vaginal 2023 024 [facility], [place], [address] [place] [address], [address], 4 12:58:03 unlisted lab - Pap reflex hold 2023 024 [email or web address] 1 [facility], [address] [place] [address], [address], 4 08:37:52 pap, LB 2023 024 [facility], [address] [place], [address], 4 15:53:31 urinalysis, dipstick 2022 023 [email or web address] 0 [facility], [address] [place] [address], [address], 3 16:46:44 bacterial vaginosis + vaginitis panel, vaginal 2022 023 [facility], [address] [place], [address], 3 14:18:43 test, urine 2021 022 0 [facility], [address] [place], [address], 2 16:23:57 bacterial vaginosis + vaginitis panel, vaginal 2021 022 [facility], [address] [place], [address], 2 07:10:21 CT + NG DNA, PCR, unspecified specimen 2021 022 [facility], [address] [place], [address], 2 08:35:18 unlisted lab - Pap reflex hold 2021 022 [facility], [address] [place], [address], 2 08:35:15 pap, LB 2021 022 BAYSIDE [facility], [address] [facility], [place], [address], 2 16:26:21 Referral None recorded. Procedures None recorded. Surgeries None recorded. Imaging US, [facility]vagina l 2023 024 [facility], [address] [place], [address], 4 15:57:42 US, transvagina l 2021 022 [facility], [address] [facility], [place], [address], 19:36:38 Medication Orders Slynd 4 mg (28) tablet 2023 024 [email or web address] 0 [id number], [address] [place], [place], [id number], 13:37:46 metronidazo le 500 mg tablet 2022 023 [email or web address] 0 [id number], [address] [place], [place], [id number], 15:06:59 Patient TargetsNo targets recorded. Patient Instructions Encounter Date Encounter Id Patient Instructions Last Modified By Organization Details Last Modified Time 02/14/2022 [id number] A healthy lifestyle: care instructions [id number] Not available 02/14/2022 16:23:57 control counseling [id number] Not available 02/14/2022 16:23:57 vaginitis education [email or web address] Not available 02/14/2022 16:23:56 sexually transmitted disease education [email or web address] Not available 02/14/2022 16:23:57 - Refrain from washcloth/loofah use, cao ivana products, frequent pantiliner use. - Pt instructed to wear cotton underwear, changing out of workout clothes quickly, hypoallergenic soap. -Discussed vaginal hygiene. -Encouraged safe sex. - Use a detergent free of dyes, enzymes and perfumes. Avoid using fabric softeners. Soak and rinse when using a stain removing product and then wash normally. Do not use a fabric softener. Soak and rinse in clear water all underwear and towels on when you have used a stain removing product. Then wash in your regular washing cycle. -Avoid tight clothing, especially clothing made of synthetic fabrics. Remove wet bathing and exercise clothing as soon as you can. - Avoid bath soaps, lotions, gels, etc. which contain perfumes. This includes many baby products and feminine hygiene products marked mild or for vaginal health. We suggest any of the following soaps: Dove-Hypoallergeni c, Neutrogena, Basis, or Pearls. Do not use soap directly on the vulvar skin just warm water and your hand will keep the vulvar area clean without irritating the skin. - Avoid all bubble baths, bath salts and scented oils. -Do not use hot water while bathing or showering. Only luke-warm water should only be used. -Avoid all feminine hygiene sprays, perfumes, adult, or baby wipes. Pour lukewarm water over the vulva after urinating if urine causes burning of the skin. Pat dry rather than rubbing with a towel. - Avoid the use of deodorized pads and tampons. Tampons should be used when the blood flow is heavy enough to soak one tampon in four hours or less. Tampons are safe for most women, but wearing them too long or when the blood flow is light may result in vaginal infection, increased discharge, odor, or toxic shock syndrome. Also, use only pads that have a cotton liner that comes in contact with your skin (no dry weave pads). - Avoid all over the counter creams or ointments, except A&D Ointment (if you have wool allergy do not use A&D). -DO NOT DOUCHE. Baking soda soaks will help rinse away extra discharge and help with odor. -DO NOT SHAVE, wax or laser the vulvar area (the bikini line is ok). -Some women may have problems with chronic dampness. Keeping dry is important. Choose cotton fabrics whenever you can. -Keep an extra pair of underwear with you in a small bag and change if you become damp during the day at work/school. -Gold Ledezma Powder or Zeosorb Powder may be applied to the vulva and groin area one to two times per day to help absorb moisture. -Dryness and irritation during intercourse may be helped by using a lubricant. Use a small amount of a pure vegetable oil/olive oil or Crisco (solid or oil). The vegetable oils contain no chemicals to irritate vulvar/vaginal skin. Vegetable oils will rinse away with water and will not increase your chances of infection. Water-based products like K-Y Jelly are helpful, but may tend to dry before intercourse is over and also contain chemicals that can irritate your vulvar skin. It may be helpful to use a non-lubricated, non-spermicidal condom, and use vegetable oil as the lubricant. This will help keep the semen off the skin which can decrease burning and irritation after intercourse. CONTROL OPTIONS 1. All hormonal contraceptives will have an effect on vaginal secretions but should not increase your frequency of vaginitis. 2. Lubricated condoms, contraceptive jellies, creams, or sponges may cause itching and burning. Ask your health care provider for help. 3. The use of latex condoms with a vegetable oil as a lubricant (#14 above) is suggested to protect your skin. Oil based lubricants may affect the integrity of condoms when used for control or prevention of sexually transmitted diseases. Our experience has not found this to be a problem with vegetable based oils. However, the Centers for Disease Control recommends that condoms not be used with any oil based lubricants for control or prevention of sexually transmitted disease. Discussed ureaplasma/mycopla sma testing and treatment, if indicated. [id number] Not available 02/12/2022 16:58:42 06/03/2023 [id number] sexually transmitted disease education [id number] Not available 06/03/2023 18:03:43 - Refrain from washcloth/loofah use, cao ivana products, frequent pantiliner use. - Pt instructed to wear cotton underwear, changing out of workout clothes quickly, hypoallergenic soap. -Discussed vaginal hygiene. -Encouraged safe sex. - Use a detergent free of dyes, enzymes and perfumes. Avoid using fabric softeners. Soak and rinse when using a stain removing product and then wash normally. Do not use a fabric softener. Soak and rinse in clear water all underwear and towels on when you have used a stain removing product. Then wash in your regular washing cycle. -Avoid tight clothing, especially clothing made of synthetic fabrics. Remove wet bathing and exercise clothing as soon as you can. - Avoid bath soaps, lotions, gels, etc. which contain perfumes. This includes many baby products and feminine hygiene products marked mild or for vaginal health. We suggest any of the following soaps: Dove-Hypoallergeni c, Neutrogena, Basis, or Pearls. Do not use soap directly on the vulvar skin just warm water and your hand will keep the vulvar area clean without irritating the skin. - Avoid all bubble baths, bath salts and scented oils. -Do not use hot water while bathing or showering. Only luke-warm water should only be used. -Avoid all feminine hygiene sprays, perfumes, adult, or baby wipes. Pour lukewarm water over the vulva after urinating if urine causes burning of the skin. Pat dry rather than rubbing with a towel. - Avoid the use of deodorized pads and tampons. Tampons should be used when the blood flow is heavy enough to soak one tampon in four hours or less. Tampons are safe for most women, but wearing them too long or when the blood flow is light may result in vaginal infection, increased discharge, odor, or toxic shock syndrome. Also, use only pads that have a cotton liner that comes in contact with your skin (no dry weave pads). - Avoid all over the counter creams or ointments, except A&D Ointment (if you have wool allergy do not use A&D). -DO NOT DOUCHE. Baking soda soaks will help rinse away extra discharge and help with odor. -DO NOT SHAVE, wax or laser the vulvar area (the bikini line is ok). -Some women may have problems with chronic dampness. Keeping dry is important. Choose cotton fabrics whenever you can. -Keep an extra pair of underwear with you in a small bag and change if you become damp during the day at work/school. -Gold Ledezma Powder or Zeosorb Powder may be applied to the vulva and groin area one to two times per day to help absorb moisture. -Dryness and irritation during intercourse may be helped by using a lubricant. Use a small amount of a pure vegetable oil/olive oil or Crisco (solid or oil). The vegetable oils contain no chemicals to irritate vulvar/vaginal skin. Vegetable oils will rinse away with water and will not increase your chances of infection. Water-based products like K-Y Jelly are helpful, but may tend to dry before intercourse is over and also contain chemicals that can irritate your vulvar skin. It may be helpful to use a non-lubricated, non-spermicidal condom, and use vegetable oil as the lubricant. This will help keep the semen off the skin which can decrease burning and irritation after intercourse. CONTROL OPTIONS 1. All hormonal contraceptives will have an effect on vaginal secretions but should not increase your frequency of vaginitis. 2. Lubricated condoms, contraceptive jellies, creams, or sponges may cause itching and burning. Ask your health care provider for help. 3. The use of latex condoms with a vegetable oil as a lubricant (#14 above) is suggested to protect your skin. Oil based lubricants may affect the integrity of condoms when used for control or prevention of sexually transmitted diseases. Our experience has not found this to be a problem with vegetable based oils. However, the Centers for Disease Control recommends that condoms not be used with any oil based lubricants for control or prevention of sexually transmitted disease. Discussed ureaplasma/mycopla sma testing and treatment, if indicated. [id number] Not available 06/03/2023 09:01:20 01/08/2024 [id number] body mass index: care instructions [id number] Not available 01/08/2024 16:16:27 A healthy lifestyle: care instructions [id number] Not available 01/08/2024 16:16:27 substance use disorder: care instructions [id number] Not available 01/08/2024 16:16:27 tobacco cessation [id number] Not availab le 01/08/2024 16:16:27 Following the [employer] Food Guide: Care Instructions [id number] Not available 01/08/2024 16:16:27 exercise program : getting started [id number] Not available 01/08/2024 16:16:27 breast self-exam : care instructions [id number] Not available 01/08/2024 16:16:28 learning about control [id number] Not available 01/08/2024 16:16:27 - Refrain from washcloth/loofah use, cao ivana products, frequent pantiliner use. - Pt instructed to wear cotton underwear, changing out of workout clothes quickly, hypoallergenic soap. -Discussed vaginal hygiene. -Encouraged safe sex. - Use a detergent free of dyes, enzymes and perfumes. Avoid using fabric softeners. Soak and rinse when using a stain removing product and then wash normally. Do not use a fabric softener. Soak and rinse in clear water all underwear and towels on when you have used a stain removing product. Then wash in your regular washing cycle. -Avoid tight clothing, especially clothing made of synthetic fabrics. Remove wet bathing and exercise clothing as soon as you can. - Avoid bath soaps, lotions, gels, etc. which contain perfumes. This includes many baby products and feminine hygiene products marked mild or for vaginal health. We suggest any of the following soaps: Dove-Hypoallergeni c, Neutrogena, Basis, or Pearls. Do not use soap directly on the vulvar skin just warm water and your hand will keep the vulvar area clean without irritating the skin. - Avoid all bubble baths, bath salts and scented oils. -Do not use hot water while bathing or showering. Only luke-warm water should only be used. -Avoid all feminine hygiene sprays, perfumes, adult, or baby wipes. Pour lukewarm water over the vulva after urinating if urine causes burning of the skin. Pat dry rather than rubbing with a towel. - Avoid the use of deodorized pads and tampons. Tampons should be used when the blood flow is heavy enough to soak one tampon in four hours or less. Tampons are safe for most women, but wearing them too long or when the blood flow is light may result in vaginal infection, increased discharge, odor, or toxic shock syndrome. Also, use only pads that have a cotton liner that comes in contact with your skin (no dry weave pads). - Avoid all over the counter creams or ointments, except A&D Ointment (if you have wool allergy do not use A&D). -DO NOT DOUCHE. Baking soda soaks will help rinse away extra discharge and help with odor. -DO NOT SHAVE, wax or laser the vulvar area (the bikini line is ok). -Some women may have problems with chronic dampness. Keeping dry is important. Choose cotton fabrics whenever you can. -Keep an extra pair of underwear with you in a small bag and change if you become damp during the day at work/school. -Gold Ledezma Powder or Zeosorb Powder may be applied to the vulva and groin area one to two times per day to help absorb moisture. -Dryness and irritation during intercourse may be helped by using a lubricant. Use a small amount of a pure vegetable oil/olive oil or Crisco (solid or oil). The vegetable oils contain no chemicals to irritate vulvar/vaginal skin. Vegetable oils will rinse away with water and will not increase your chances of infection. Water-based products like K-Y Jelly are helpful, but may tend to dry before intercourse is over and also contain chemicals that can irritate your vulvar skin. It may be helpful to use a non-lubricated, non-spermicidal condom, and use vegetable oil as the lubricant. This will help keep the semen off the skin which can decrease burning and irritation after intercourse. CONTROL OPTIONS 1. All hormonal contraceptives will have an effect on vaginal secretions but should not increase your frequency of vaginitis. 2. Lubricated condoms, contraceptive jellies, creams, or sponges may cause itching and burning. Ask your health care provider for help. 3. The use of latex condoms with a vegetable oil as a lubricant (#14 above) is suggested to protect your skin. Oil based lubricants may affect the integrity of condoms when used for control or prevention of sexually transmitted diseases. Our experience has not found this to be a problem with vegetable based oils. However, the Centers for Disease Control recommends that condoms not be used with any oil based lubricants for control or prevention of sexually transmitted disease. Discussed ureaplasma/mycopla sma testing and treatment, if indicated. [email or web address] Not available 01/08/2024 15:15:58 Reason for Referral None Reported. Results Created Date Observation Date Name Description Value Unit Range Abnormal Flag Note LastModifiedBy Organization Detail LastModifiedTime 01/10/2001/10/2024 VAGIN ITIS PLUS STD PANEL bacterial vaginosis BV POS negati ve abnormal Not Available [facility] [address] [place], [address], 01/10/2024 12:58:03 01/10/20 24 01/10/2024 VAGIN ITIS PLUS STD PANEL laura species C. spp neg negati ve normal Not Available [address] [address] [place], [address], 01/10/2024 12:58:03 01/10/20 24 01/10/2024 VAGIN ITIS PLUS STD PANEL laura glabrata C. gla neg negati ve normal Not Available [address], [address], 01/10/2024 12:58:03 01/10/20 24 01/10/2024 VAGIN ITIS PLUS STD PANEL trichomonas vaginalis CV/TV TRICH neg negati ve normal Not Available [address], [address], 01/10/2024 12:58:03 01/10/20 24 01/10/2024 VAGIN ITIS PLUS STD PANEL chlamydia trachomatis CT neg negati ve normal This repor t is inten ded for us in clini sylvia monit oring and manag ement of patie nts. It is not inten ded for use in medic al-le gal appli catio n. Not Available [address], [address], 01/10/2024 12:58:03 01/10/20 24 01/10/2024 VAGIN ITIS PLUS STD PANEL neisseria gonorrhoeae GC neg negati ve normal This repor t is inten ded for us in clini sylvia monit oring and manag ement of patie nts. It is not inten ded for use in medic al-le gal appli catio n. Not Available [address], [address], 01/10/2024 12:58:03 01/20/20 24 01/19/2024 ESTRA DIOL estradiol 63 pg/mL normal Refer ence Range Folli cular Phase : 19-14 4 Mid-C ycle: 64-35 7 Lutea l Phase : 56-21 4 Postm enopa usal: < or = 31 Refer ence range estab lishe d on post- puber gardenia patie nt popul ation . No pre-p ubert al refer ence range estab lishe d using this assay . For any patie nts for whom low Estra diol level s are antic ipate d (e.g. males , pre-p ubert al child dylan and hypog onada l/pos t-men opaus al femal es), the [facility] Estra diol, Ultra sensi tive, LCMSM S assay is presley giles (orde r code 27148 ). Fredo e note: patie nts being treat ed with the drug fulve stran t (Fasl odex( R)) have demon strat ed signi fican t inter feren ce in immun oassa y metho ds for estra diol measu remen t. The cross react ivity could lead to false ly eleva edin estra diol test resul ts leadi ng to an inapp ropri ate clini sylvia asses sment of estro gen statu s. [facility] order code [id number] -Estr adiol , Ultra sensi tive LC/MS /MS demon strat es negli gible cross react ivity with fulve stran t. Not Available [employer] [address] [address] [place], [address], 01/20/2024 00:52:19 01/20/20 24 01/19/2024 TESTO STERO NE, FREE testosterone , free 1.8 pg/mL 0.2-5. 0 (Note ) The sharla ntrat ion of free testo stero ne is deriv ed from a cristal leung al model using total testo stero ne by LCMSM S, sex hormo ne adams ng globu anthony and album in. This test was devel oped and its jaime tical perfo rmanc e daily cteri stics have been deter mined by [employer]. It has not been clear ed or appro alicja by the FDA. This assay has been valid ated pursu ant to the CLIA regul ation s and is used for clini sylvia purpo ses. F med fusio n [address] [facility] [address] [place] [address] [phone] Siva Hernandez MD, PhD Not Available [employer] [facility] [address] [place], [address], 01/20/2024 00:52:20 01/20/20 24 01/19/2024 TESTO STERO NE, TOTAL , MS testosterone , total, MS 41 NG/dL 2-45 For addit ional infor fredo garcia refer to https ://ed ucati on.qu becky fajardoNeRRe Therapeuticss. com/f aq/To Talha valdez MSM S (This link is being provi ded for infor yolande nal/e ducat ional purpo ses only. ) (Note ) This test was devel oped and its jaime tical perfo rmanc e daily cteri stics have been deter mined by [employer]. It has not been clear ed or appro alicja by the FDA. This assay has been valid ated pursu ant to the CLIA regul ation s and is used for clini sylvia purpo ses. MDF med fusio n [address] [facility] [address] [facility] [address] [phone] Siva Hernandez MD, PhD NO COLLE CTION DATE RECEI ALICJA. WE HAVE USED THE DATE THE SPECI MEN WAS RECEI ALICJA BY THIS LABOR ATORY THE COLLE CTION DATE. IF THIS IS INCOR RECT, FREDO E CONTA CT CLIEN T SERVI SCOTTIE. PHONE NUMBE R: [phone] Not Available [employer] [facility] [address] [place], [address], 01/20/2024 00:52:21 02/15/20 22 02/15/2022 PAP REFLE X HOLD Pap reflex hold Receiv ed receiv ed Not Available [place], [address], 02/15/2022 08:35:18 02/15/20 22 02/15/2022 CT/NG chlamydia trachomatis CT neg negati ve normal This repor t is inten ded for us in clini sylvia monit oring and manag ement of patie nts. It is not inten ded for use in medic al-le gal appli catio n. Not Available [place], [address], 02/16/2022 10:08:50 02/15/20 22 02/15/2022 CT/NG neisseria gonorrhoeae GC neg negati ve normal This repor t is inten ded for us in clini sylvia monit oring and manag ement of matthew wise. It is not inten ded for use in medic al-le gal appli catio n. Not Available [facility] [address] [facility], [place], [address], 02/16/2022 10:08:50 02/15/20 22 02/16/2022 THINP REP TIS PAP clinical information: normal Infor matio n not provi ded Not Available [facility] [address] [address] [place], [address], 02/16/2022 16:26:21 02/15/20 22 02/16/2022 THINP REP TIS PAP LMP: normal INFOR MATIO N NOT PROVI DED Not Available [facility] [address] [address] [place], [address], 02/16/2022 16:26:21 02/15/20 22 02/16/2022 THINP REP TIS PAP prev. Pap: normal INFOR MATIO N NOT PROVI DED Not Available [facility] [address] [address] [place], [address], 02/16/2022 16:26:21 02/15/20 22 02/16/2022 THINP REP TIS PAP prev. BX: normal INFOR MATIO N NOT PROVI DED Not Available [facility] [address] [address] [place], [address], 02/16/2022 16:26:21 02/15/20 22 02/16/2022 THINP REP TIS PAP source: normal Cervi x Not Available [facility] [address] [address] [place], [address], 02/16/2022 16:26:21 02/15/20 22 02/16/2022 THINP REP TIS PAP statement of adequacy: normal Satis facto ry for evalu ation . Endoc ervic al/tr ansfo rmati on zone compo nent prese nt. Age and/o r menst rual statu s not provi ded Not Available [address] [address] [place], [address], 02/16/2022 16:26:21 02/15/20 22 02/16/2022 THINP REP TIS PAP interpretati on/result: normal Negat alejandro for intra epith elial lesio n or malig sophie . Not Available [address] [address] [place], [address], 02/16/2022 16:26:21 02/15/20 22 02/16/2022 THINP REP TIS PAP comment: normal This Pap test has been evalu ated with compu ter krishna edin techn ology . Not Available [address] [address] [address], [place], [address], 02/16/2022 16:26:21 02/15/20 22 02/16/2022 THINP REP TIS PAP cytotechnolo gist: normal MLO, CT( CP) CT scree olivia locat ion: [place] [address] [address] [place] [address] Not Available [address] [address] [place], [address], 02/16/2022 16:26:21 02/15/20 22 02/16/2022 THINP REP TIS PAP comment EXPLA NATOR Y NOTE: The Pap is a scree olivia test for cervi sylvia cance r. It is not a diagn ostic test and is subje ct to false negat alejandro and false posit alejandro resul ts. It is most relia ble when a satis facto ry sampl e, regul radha obtai mode, is submi tted with relev ant clini sylvia findi ngs and histo ry, and when the Pap resul t is evalu ated along with histo rina and curre nt clini sylvia infor matio n. Not Available [employer] [facility] [address], [place], [address], 02/16/2022 16:26:21 02/15/20 22 02/21/2022 VAGIN ITIS PANEL bacterial vaginosis BV POS negati ve abnormal Not Available [address], [address], 02/22/2022 07:10:21 02/15/20 22 02/21/2022 VAGIN ITIS PANEL laura species C. spp neg negati ve normal Not Available [address], [address], 02/22/2022 07:10:21 02/15/20 22 02/21/2022 VAGIN ITIS PANEL laura glabrata C. gla neg negati ve normal Not Available [address], [address], 02/22/2022 07:10:21 02/15/20 22 02/21/2022 VAGIN ITIS PANEL trichomonas vaginalis CV/TV TRICH neg negati ve normal Not Available [address], [address], 02/22/2022 07:10:21 02/15/20 22 02/14/2022 pregn shirlene test, urine HCG negati ve Not Available [place] [address] [facility], [place], [address], 02/14/2022 16:22:49 06/03/20 23 06/05/2023 VAGIN ITIS PLUS STD PANEL bacterial vaginosis BV POS negati ve abnormal Not Available [address], [address], 06/05/2023 14:18:42 06/03/20 23 06/05/2023 VAGIN ITIS PLUS STD PANEL laura species C. spp neg negati ve normal Not Available [address], [address], 06/05/2023 14:18:42 06/03/20 23 06/05/2023 VAGIN ITIS PLUS STD PANEL laura glabrata C. gla neg negati ve normal Not Available [address], [address], 06/05/2023 14:18:42 06/03/20 23 06/05/2023 VAGIN ITIS PLUS STD PANEL trichomonas vaginalis CV/TV TRICH neg negati ve normal Not Available [address], [address], 06/05/2023 14:18:42 06/03/2006/05/2023 VAGIN ITIS PLUS STD PANEL chlamydia trachomatis CT neg negati ve normal This repor t is inten ded for us in clini sylvia monit oring and manag ement of patie nts. It is not inten ded for use in medic al-le gal appli catio n. Not Available [address], [address], 06/05/2023 14:18:42 06/03/2006/05/2023 VAGIN ITIS PLUS STD PANEL neisseria gonorrhoeae GC neg negati ve normal This repor t is inten ded for us in clini sylvia monit oring and manag ement of patie nts. It is not inten ded for use in medic al-le gal appli catio n. Not Available [address], [address], 06/05/2023 14:18:42 06/03/2006/03/2023 urina lysis , dipst ick Leukocytes Negati ve Not Available [address], [address], 06/03/2023 16:29:06 06/03/20 23 06/03/2023 urina lysis , dipst ick Nitrite negati ve Not Available [address], [address], 06/03/2023 16:29:06 06/03/2006/03/2023 urina lysis , dipst ick Urobilinogen .2 Not Available [facility] [place], [address], 06/03/2023 16:29:06 06/03/2006/03/2023 urina lysis , dipst ick Protein Negati ve Not Available [address], [address], 06/03/2023 16:29:06 06/03/2006/03/2023 urina lysis , dipst ick pH 5.0 Not Available [address], [address], 06/03/2023 16:29:06 06/03/20 23 06/03/2023 urina lysis , dipst ick Blood Negati ve Not Available [address], [address], 06/03/2023 16:29:06 06/03/2006/03/2023 urina lysis , dipst ick Specific [place] 1.000 Not Available [address], [address], 06/03/2023 16:29:06 06/03/2006/03/2023 urina lysis , dipst ick Ketone Negati ve Not Available [address], [address], 06/03/2023 16:29:06 06/03/2006/03/2023 urina lysis , dipst ick Bilirubin Negati ve Not Available [address], [address], 06/03/2023 16:29:06 06/03/20 23 06/03/2023 urina lysis , dipst ick Glucose Negati ve Not Available [address], [address], 06/03/2023 16:29:06 06/03/20 23 06/03/2023 urina lysis , dipst ick Appearance Clear Not Available [address], [address], 06/03/2023 16:29:06 06/03/20 23 06/03/2023 urina lysis , dipst ick Color Yellow Not Available [address], [address], 06/03/2023 16:29:06 01/08/20 24 01/13/2024 THINP REP TIS PAP clinical information: normal None given Not Available [address], [address], 01/13/2024 15:53:31 01/08/20 24 01/13/2024 THINP REP TIS PAP LMP: normal NONE GIVEN Not Available [address], [address], 01/13/2024 15:53:31 01/08/20 24 01/13/2024 THINP REP TIS PAP prev. Pap: normal NONE GIVEN Not Available [employer] [facility] [address] [place], [address], 01/13/2024 15:53:31 01/08/20 24 01/13/2024 THINP REP TIS PAP prev. BX: normal NONE GIVEN Not Available [employer] [facility] [address], [address], 01/13/2024 15:53:31 01/08/20 24 01/13/2024 THINP REP TIS PAP source: normal None given Not Available [address] [address] [place], [address], 01/13/2024 15:53:31 01/08/20 24 01/13/2024 THINP REP TIS PAP statement of adequacy: normal Satis facto ry for evalu ation . Endoc ervic al/tr ansfo rmati on zone compo nent prese nt. Age and/o r menst rual statu s not provi ded Not Available [address] [address] [place], [address], 01/13/2024 15:53:31 01/08/20 24 01/13/2024 THINP REP TIS PAP interpretati on/result: normal Cytol ogy Resul ts: Negat alejandro for intra epith elial lesio n or malig sophie . Not Available [address] [address] [place], [address], 01/13/2024 15:53:31 01/08/20 24 01/13/2024 THINP REP TIS PAP infection: normal Shift in vagin al michael sugge stive of bacte rial vagin osis. Not Available [address] [address] [place], [address], 01/13/2024 15:53:31 01/08/20 24 01/13/2024 THINP REP TIS PAP comment: normal This Pap test has been evalu ated with compu ter krishna edin techn ology . Not Available [address] [address] [place], [address], 01/13/2024 15:53:31 01/08/20 24 01/13/2024 THINP REP TIS PAP cytotechnolo gist: normal JUAREZ, CT( CP) CT Scree olivia locat ion: [address] [place] [address] Not Available [address] [address] [place], [address], 01/13/2024 15:53:31 01/08/20 24 01/13/2024 THINP REP TIS PAP comment EXPLA NATBRENDA Y NOTE: The Pap is a scree olivia test for cervi sylvia cance r. It is not a diagn ostic test and is subje ct to false negat alejandro and false posit alejandro resul ts. It is most relia ble when a satis facto ry sampl e, regul radha obtai mode, is submi tted with relev ant clini sylvia findi ngs and histo ry, and when the Pap resul t is evalu ated along with histo rina and curre nt clini sylvia infor [facility] [place] [facility]. Not Available [address] [address] [place], [address], 01/13/2024 15:53:31 01/08/20 24 01/08/2024 urina lysis , dipst ick Leukocytes Negati ve Not Available [address], [address], 01/08/2024 15:17:16 01/08/20 24 01/08/2024 urina lysis , dipst ick Nitrite negati ve Not Available [address], [address], 01/08/2024 15:17:16 01/08/20 24 01/08/2024 urina lysis , dipst ick Urobilinogen .2 Not Available [address], [address], 01/08/2024 15:17:16 01/08/20 24 01/08/2024 urina lysis , dipst ick Protein Negati ve Not Available [address], [address], 01/08/2024 15:17:16 01/08/20 24 01/08/2024 urina lysis , dipst ick pH 5.0 Not Available [address], [address], 01/08/2024 15:17:16 01/08/20 24 01/08/2024 urina lysis , dipst ick Blood Negati ve Not Available [address], [address], 01/08/2024 15:17:16 01/08/20 24 01/08/2024 urina lysis , dipst ick Specific [place] 1.000 Not Available [address], [address], 01/08/2024 15:17:16 01/08/20 24 01/08/2024 urina lysis , dipst ick Ketone Negati ve Not Available [address], [address], 01/08/2024 15:17:16 01/08/20 24 01/08/2024 urina lysis , dipst ick Bilirubin Negati ve Not Available [address], [address], 01/08/2024 15:17:16 01/08/20 24 01/08/2024 urina lysis , dipst ick Glucose Negati ve Not Available [address], [address], 01/08/2024 15:17:16 01/08/20 24 01/08/2024 urina lysis , dipst ick Appearance Clear Not Available [address], [address], 01/08/2024 15:17:16 01/08/20 24 01/08/2024 urina lysis , dipst ick Color Yellow Not Available [place] [address] [facility], [place], [address], 01/08/2024 15:17:16 01/16/20 24 01/17/2024 PROLA CTIN prolactin 9.5 NG/mL Refer ence Range s Femal e aged 18-Ad ult Nonpr egnan t: 2.8-2 9.2 ng/mL Pregn ant: 9.7-2 08.5 ng/mL Post- menop ausal : 1.8-2 0.3 ng/mL Pregn shirlene, lacta tion, and the admin istra tion of oral contr acept ashish can incre ase prola ctin sharla ntrat ions. [place], [address], 01/17/2024 11:04:38 01/16/20 24 01/17/2024 HEMOG LOBIN A1C hemoglobin A1C 4.9 % <5.7 normal The refer ence range for HbA1c is indic ated in the table below . Sugge sted Diagn osis =6.5% Consi stent with diabe yuliana 5.7 6.4% Consi stent with incre ased risk for diabe yuliana (pred iabet ic) <5.7% Consi stent with the absen ce of diabe yuliana [place], [address], 01/17/2024 11:04:39 01/16/20 24 01/17/2024 FSH AND LH FSH 9.6 mIU/m L Refer ence Range s are for femal es aged 18 years - Adult Ilda l Menst ruati ng Femal e: Folli cular phase : 2.5-1 0.2 mIU/m L Mid-C ycle Peak: 3.4-3 3.4 mIU/m L Lutea l phase : 1.5-9 .1 mIU/m L Pregn ant: <0.3 mIU/m L Post- menop ausal : 23.0- 116.6 mIU/m L [place], [address], 01/17/2024 11:04:41 01/16/20 24 01/17/2024 FSH AND LH LH 6.64 U/L Refer ence Range s are for femal es aged 18 years - Adult Ilda l Menst ruati ng Femal e: Folli cular phase : 1.9-1 2.5 mIU/m L Mid-C ycle Peak: 8.7-7 6.3 mIU/m L Lutea l phase : 0.5-1 6.9 mIU/m L Pregn ant: <0.1- 1.5 mIU/m L Post- menop ausal : 15.9- 54.0 mIU/m L Contr acept ashish: 0.7-5 .6 mIU/m L Not Available [place], [address], 01/17/2024 11:04:41 01/16/20 24 01/17/2024 HCG, TOTAL , QUANT HCG, total, quant < 2 mIU/m L <5 normal Refer ence Range s are for femal es aged 18 years - Adult Nonpr egnan t or preme nopau jeff <5 Postm enopa usal <10 Value s from diffe rent assay metho ds may vary. The use of this assay to monit or or to diagn ose patie nts with cance r or any other condi tion unrel ated to pregn shirlene has not been valid ated by the manuf actur er of this assay . Not Available [place], [address], 01/17/2024 11:04:45 01/16/20 24 01/17/2024 TSH W/ REFLE X TO FREE, T4 TSH 1.37 mIU/L 0.55 - 4.78 normal Refer ence Range Femal e aged 18-Ad ult: 0.55- 4.78 Pregn shirlene Refer ence Range s First Trime ster 0.26- 2.66 Secon d Trime ster 0.55- 2.73 Third Trime ster 0.43- 2.91 Not Available [address], [address], 01/17/2024 11:04:46 01/16/20 24 01/17/2024 PROGE STERO NE progesterone 0.30 NG/mL Refer ence Range s Femal es aged 18 years Adult Ilda l Menst ruati ng Femal e Folli cular phase : <0.21 -1.40 ng/mL Lutea l phase : 3.34- 25.56 ng/mL Mid lutea l phase : 4.44- 28.03 ng/mL Post- menop ausal <0.21 -0.73 ng/mL Pregn shirlene Refer ence Range s First Trime ster 11.22 -90.0 0 ng/mL Secon d Trime ster 25.55 -89.4 0 ng/mL Third Trime ster 48.40 -422. 50 ng/mL Not Available [address], [address], 01/17/2024 11:09:38 10/04/19 22 2021 US, trans vagin al No observ ation record ed. [email or web address] [address], [place], [address], 10/09/2021 14:36:50 01/22/20 24 01/16/2024 US, trans vagin al No observ ation record ed. [email or web address] [address], [place], [address], 01/22/2024 16:03:35 Result Notes None recorded. Problems No Known Problems Procedures Surgical History Date Name Laterality Status Provider Name and Address Organization Details Recorded Time 01/08/2024 Date of Last Pap Smear completed [facility] 01/08/2024 15:30:40 Imaging Results None recorded. Procedure Notes None recorded. Medical Equipment None Reported. Allergies Allergen ID Allergen Name Allergen Category Reaction Reaction Severity Criticality Documentation Date Start Date Code Code System Note Provider Name and Address Organization Details Recorded Time 630963 latex environme nt,medica tion Not available Not available Not available 06/03/2023 91564 91 RxNorm Desi George [facility], [facility] 3 16:27:55 Medications Name Sig Start Date Stop Date Status Note LastModified by Organization Details LastModified Time quetiapin e 25 mg tablet TAKE 1 TABLET BY MOUTH ONCE DAILY AT NIGHT AT BEDTIME DIRECTED 02/14 completed Not Available Not Available Not Available venlafaxi ne ER 37.5 mg capsule,e xtended release 24 hr 08/15 completed Not Available Not Available Not Available paroxetin e 10 mg tablet 10/03 completed Not Available Not Available Not Available azithromy lissette 250 mg tablet 08/15 completed Not Available Not Available Not Available fluconazo le 200 mg tablet 06/03 completed Not Available Not Available Not Available metronida zole 0.75 % (37.5 mg/5 gram) vaginal gel INSERT 1 APPLICAT ORFUL VAGINALL Y EVERY DAY AT BEDTIME FOR 5 DAYS active Not Available Not Available No t Available ondansetr on HCl 4 mg tablet TAKE 1 TABLET BY MOUTH EVERY 6 HOURS 10/03 completed Not Available Not Available Not Available clonazepa m 0.5 mg tablet TAKE 1 TABLET BY MOUTH TWICE DAILY NEEDED FOR ANXIETY 02/14 completed Not Available Not Available Not Available Elmiron 100 mg capsule Take 1 capsule( s) by mouth tid 10/06 completed Elmiron 100mg Capsules RxNorm: 800244 Allow Substitu tion: True Refill Denied: No Not Available Not Available Not Available Diflucan 150 mg tablet 1 p.o. now, repeat in 3 days 06/12 completed Diflucan 150mg Tablet RxNorm: 009809 Allow Substitu tion: True Refill Denied: No Refill Note: Auto Aged Refill DateOccu rred: 04/13/20 19 Not Available Not Available Not Available metronida zole 500 mg tablet TAKE 1 TABLET BY MOUTH EVERY 12 HOURS FOR 7 DAYS 01/07 completed Not Available Not Available Not Available sulfameth oxazole 800 mg-trimet hoprim 160 mg tablet 08/15 completed Not Available Not Available Not Available olanzapin e 2.5 mg tablet 08/15 completed Not Available Not Available Not Available quetiapin e 100 mg tablet 10/03 completed Not Available Not Available Not Available Vitamin tablet 08/15 completed Multivit palmer Allow Substitu tion: True Refill Denied: No Refill DateOccu rred: 04/01/20 18 Not Available Not Available Not Available doxycycli ne monohydra te 100 mg capsule 06/03 completed Not Available Not Available Not Available cephalexi n 500 mg capsule TAKE 1 CAPSULE BY MOUTH TWICE DAILY FOR 7 DAYS 01/07 completed Not Available Not Available Not Available ibuprofen 600 mg tablet 02/14 completed Not Available Not Available Not Available hydroxyzi ne HCl 10 mg tablet 10/03 completed Not Available Not Available Not Available ondansetr on 4 mg disintegr ating tablet DISSOLVE 1 TABLET IN MOUTH EVERY 8 HOURS NEEDED FOR NAUSEA FOR VOMITING 01/07 completed Not Available Not Available Not Available risperido ne 1 mg tablet 02/14 completed Not Available Not Available Not Available hydroxyzi ne pamoate 25 mg capsule 10/03 completed Not Available Not Available Not Available NuvaRing 0.12 mg-0.015 mg/24 hr vaginal Insert 1 vaginal ring in vagina for 21 days then remove the ring for 1 week, then insert new ring. 08/15 completed NuvaRing 0.015mg/ 0.12mg Vaginal Ring RxNorm: [id number] Allow Substitu tion: True Refill Denied: No Not Available Not Available Not Available nitrofura ntoin monohydra te/macroc rystals 100 mg capsule 08/15 completed Not Available Not Available Not Available quetiapin e 50 mg tablet 08/15 completed Not Available Not Available Not Available Myrbetriq 04/14 completed Myrbetri q 50mg Tablets, Extended Release RxNorm: [id number] Allow Substitu tion: True Refill Denied: No Refill DateOccu rred: 04/01/20 18 Not Available Not Available Not Available Zumandimi ne (28) 3 mg-0.03 mg tablet TAKE 1 TABLET BY MOUTH ONCE DAILY 10/03 completed Not Available Not Available Not Available Slynd 4 mg (28) tablet Take 1 tablet every day by oral route. 2023 active Not Available Not Available Not Avai lable Probichew active Not Available Not Candy ilable Not Available ID NOW COVID-19 Test Kit TEST DIRECTED TODAY 11/13 completed Not Available Not Available Not Available Vitals Date Recorded Body height Body mass index (BMI) Body weight Systolic And Diastolic Provider Name and Address Organization Details Last Updated DateTime 2021 172.72 cm 22.2 kg/m2 59224.49 g 116/66 mm[Hg] Carisa Argueta [facility] [employer] 2021 12:33:35 Date Recorded Body height Body mass index (BMI) Body weight Systolic And Diastolic Provider Name and Address Organization Details Last Updated DateTime 01/08/2024 172.72 cm 22.8 kg/m2 57595.86 g 120/78 mm[Hg] [facility] 01/08/2024 15:20:29 Date Recorded Body height Body mass index (BMI) Body weight Systolic And Diastolic Provider Name and Address Organization Details Last Updated DateTime 01/16/2024 172.72 cm 22.8 kg/m2 22502.86 g 118/80 mm[Hg] [facility] [employer] 01/16/2024 11:40:20 Date Recorded Body height Body mass index (BMI) Body weight Systolic And Diastolic Provider Name and Address Organization Details Last Updated DateTime 02/14/2022 172.72 cm 22.2 kg/m2 92947.49 g 116/80 mm[Hg] [facility] 02/14/2022 15:54:15 Date Recorded Body height Body mass index (BMI) Body weight Systolic And Diastolic Provider Name and Address Organization Details Last Updated DateTime 06/03/2023 172.72 cm 21.3 kg/m2 99018.93 g 120/74 mm[Hg] [facility] [employer] [facility] 06/03/2023 16:27:44 Social History Question Answer Notes LastModified by Organizat ion Details LastModified Time Tobacco Smoking Status Never Smoker Darryl connelly, [facility] [employer] IV 08/15/2021 16:55:40 How Many Children Do You Have? 1 Information not available 08/15/2021 What Is Your Relationship Status? Single Engaged [email or web address] Information not available 02/14/2022 Are You Sexually Active? Yes Information not available 08/15/2021 Sex: Unknown Functional Status Question Answer Note LastModified by Organizat ion Details LastModified Time Do you use any illicit or recreational drugs? No Information not available 08/15/2021 Do you or have you ever used any other forms of tobacco or nicotine? No Information not available 08/15/2021 What is your level of alcohol consumption? None Information not available 08/15/2021 Mental Status None recorded. Family History Relationship Description Onset Age of this Age Resolved Age Notes LastModified by Organization Details LastModified Time Father No current problems or disability Not available 08/15 16:55:09 Mother No current problems or disability Not available 08/15 16:55:09 Medical History Condition Response Other Cancer N High Blood Pressure N Colon Cancer N Cytomegalovirus N Hyperthyroidism N Blood Transfusion N MRSA N Herpes (HSV) N Breast Cancer N Lung Cancer N Depression Y Hypothyroidism N Incontinence N Panic Attacks N Neurological Disorder N Deep Vein Thrombosis N Anxiety Disorder Y Autoimmune disease N Arthritis N Shingles N Tuberculosis/Positive PPD N Polycystic Ovarian Syndrome N Cervical Cancer N Chlamydia N Hematuria N Stroke N Varicosities N Seasonal allergies N Crohn's Disease N Alzheimer's/Dementia N COPD/Emphysema N Endometriosis N HPV/Genital Warts N IBS (Irritable Bowel Syndrome) N History of Abnormal Pap N High Cholesterol N Liver Disease N Kidney Infection N Fibromyalgia N Ulcer N Kidney Disease N HIV N Gallbladder disease N Von Willebrand disease N Sickle Cell Disease/Trait N ADD/ADHD N Eating Disorder N Diabetes Mellitus (non-insulin dependent ) N Anemia N Ovarian Problems N Multiple Sclerosis N Gonorrhea N Frequent Urinary Tract infections N Osteopenia N Headaches/migraines N GERD (reflux) N Ovarian Cancer N Diabetes (insulin dependent) N Seizures/Epilepsy N Fibroids N Asthma N Heart Attack N Endometrial Cancer N Lupus N Rubella N Blood Clotting Disorder N Bipolar Disorder N Diabetes Mellitus (during ) N Ulcerative Colitis N Hepatitis N Heart Disease N Pulmonary Embolism N RPR N Chicken Pox N Osteoporosis N Gynecological History Statement/Question Response Flow Date of LMP 12/11/2023 Most Recent Bone Density Date of Last Pap Smear 01/08/2024 Most Recent Mammogram Current Control Method None Age at Menarche 11 Obstetrics History GPAL:G 2 P 1 0 1 1 Type Value Multiple Births 0 Full Term 1 Induced 0 Spontaneous 1 Premature 0 Living 1 Ectopics 0 Total 2 Past Encounters Encounter ID Performer Location Encounter Start Date Encounter Closed Date Diagnosis/Indication Diagnosis SNOMED-CT Code Diagnosis ICD10 Code Diagnosis Note [id number] Disha Palomino CNM [facility] [address] [place] [address] 08/15/2021 15:51:21 08/16/2021 12:43:15 Cyst of right ovary 1132099517 1041747 N83.201 2.6 and 2.7 small follical cyst noted on US report return in 6 wks for f/u US Vaginitis 96002803 N76.0 copious clear jelly like mucus for the last month or so, had std testing and outside facility and states all normal, will try flagyl to see if that helps and rephresh gel once week times 2, return if no improvment [id number] Kellee Herrmann CNM [facility] h [address] [place] [address] 2021 10:54:05 2021 13:20:12 Cyst of ovary 32773448 N83.209 follicle today 1.3x1.9cm. Reviewed normal findings with patient. Followup for annual exams and PRN> [id number] BITA Sauer [address] [address] 02/14/2022 15:48:28 02/14/2022 16:12:12 Gynecologic examination 12697379 Z01.419 Screening for malignant neoplasm of cervix 736366744 Z12.4 Surveillan ce of contraception 787636268 Z30.40 Declines control. Encouraged PNV Infection screening 9867 25048 Z11.9 Discussed all measures to avoid vaginal infections Irregular periods 851184 07 N92.6 UPT negative. Declines interventi on [id number] BITA Sauer [address] [address] 06/03/2023 16:13:38 06/03/2023 16:47:50 Increased frequency of urination 999722594 R35.0 Urine dip negative Acute vaginitis 61966830 N76.0 - Reviewed vulvar hygiene: avoid tight or moist clothing, soaps, Vagisil and other wipes, cotton underwear only and sleep without, unscented detergent - Start probiotic- RTO for annual or as needed Contracept ion care management 185594754 Z30.9 Declines at this time Education about sexually transmitted disease prevention 172134512 Z70.8 Pt educated on importance of condom use for protection against STD's. Samples collected and sent. Further POC pending lab result review. Pt states understand ing of POC. [id number] BITA Sauer [facility] [address] [place] [address] 01/08/2024 15:03:08 01/08/2024 16:21:54 Acute vaginitis 76910331 N76.0 - Reviewed vulvar hygiene: avoid tight or moist clothing, soaps, Vagisil and other wipes, cotton underwear only and sleep without, unscented detergent - Start probiotic- RTO for annual or as needed Urinary tr act infectious disease 82572026 N39.0 Urine dip negative Gynecologi c examination 14268693 Z01.419 23y.o. here for annual exam. - Pap today - RTO PRN or annual Screening for malignant neoplasm of cervix 600084961 Z12.4 ASCCP guidelines reviewed with pt. Pap collected and sent. Further POC pending lab result review. Pt states understand ing of POC. Surveillan ce of contraception 916551780 Z30.40 Declines control. Encouraged PNV Screening for malignant neoplasm of breast 044047922 Z12.39 Client advised to perform self-breas t exams and report any changes. Irregular periods 822100 07 N92.6 will RTO for pelvic u/s and labs [id number] BITA Sauer [facility] [address] [place] [address] 01/16/2024 11:20:14 01/16/2024 12:30:45 Pain in pelvis 76486933 R10.2 Discussed pelvic u/s findingsWi ll repeat u/s in 6-8 weeks to ensure resolution of 6cm cyst Contracept alejandor use education 34920318 Z30.09 Pt educated on risks Vs benefits of use, and reviewed ACHES symptoms. Importance of daily administra tion within the same 30 minute time frame reinforced to pt, and on use of condoms or abstinence if dosing schedule is interrupte d. Refills sent. Plan to F/U PRN or at next [facility]. Irregular periods [id number] N92.6 Today we discussed possibilit y PCOS and its physiology . We discussed the hormonal implicatio ns as well as the physical findings that come with this diagnosis. I have strongly recommende d weight control through maintainin g a healthy diet and regular exercise both cardiovasc ular and muscle building. We have discussed treatments for symptoms as well as the importance of cycle control to avoid endometria l hyperplasi a and malignancy . Cyst of right ovary [id number] N83.201 Discussed 6cm ovarian cystDiscus sed ovarian torsionShe cannot take a hormonal method with estrogenWi ll repeat u/s in 8 weeks to ensure resolution Health Concerns Section Related Observation LastModified by Organization Detai ls LastModified Time None Recorded Concern Status LastModified by Organization Details LastModified Time None Recorded Advance Directives Directive None Recorded Payers Insurance Date Sequence Insurance Name Policy Number Policy Tran Covered Member ID Tran Member ID Guarantor Name 02/24/2024 1 [id number] [facility] [id number] [facility] 01/10/2024 1 [id number] [facility] [id number] [facility] 01/08/2024 1 UMR [id number] [facility] [id number] [facility] 02/27/2024 2 MEDICAID[place]: [place] [employer] T[facility]ka [facility] [id number] [facility] Notes Date Note Type Note Provider Name and Address Organization Details Recorded Time 2 text/html Pt here for follow up from right ovarian cyst (2.6cm on 08/15) . Pt states she has moderate pelvic cramping. She also states she spots everyday. Unsure of her actual LMP date. Has been on depo provera in the past. No trying to concieve, but does not want contraception. Kellee Herrmann, RASHID [address] [facility], [place], [address], [facility] [employer] IV 2021 12:55:00 2 text/html Vaginal/Vulvar ProblemReported by Patient Annual GYNReported by PatientGenitourinary symptomsFor menstrual cycle, patient reportsirregular cycle intervals. For vagina, patient reportswhiteandvaginal itching. For urinary symptoms, patient reportsno hematuriaandno incontinence. For vulva, patient reportsno genital lesion.Breast symptomsFor breast, patient reportsno breast pain,no breast lump, andno nipple discharge.Endocrine symptomsFor sexual complaints, patient reportsno sexual complaints,no pain during intercourse, andnormal libido. For menopausal symptoms, patient reportsno menopausal symptomsandnormal vaginal lubrication.Psychological symptomsFor psychological symptoms, patient reportsno depression,no anxiety, andno pmdd.ROS as noted in the HPI Tameka is here for her AEX, as well as vaginal itching and odor x 3 weeks. She is sexually active and requests STD testing. She is currently not preventing . She does not want control at this time. She stopped DMPA this past August and her menses have been irregular. BITA Sauer [address] [facility], [place], [address], [facility] [employer] 02/14/2022 16:24:58 3 text/html Vaginal/Vulvar ProblemReported by Patient Lower Urinary Tract Symptoms (LUTS)Reported by Patientcramping, urinary frequency, smelly urineROS as noted in the HPI Tameka is here for c/o moderate amount of vaginal discharge and odorShe was evaluated for this [facility]23 and tx'd for BVShe also c/o urinary pressure. She denies dysuria/urinary hesitancyHer last pap was 02/14/22 NIMLShe is sexually active and requests GC/CT testingShe is not using control BITA Sauer [address] [facility], [place], [address], [employer] 06/03/2023 18:04:57 4 text/html Annual GYNReported by PatientGenitourinary symptomsFor menstrual cycle, patient reportsirregular cycle intervals. For urinary symptoms, patient reportsburning sensation during urinationbut reportsno hematuriaandno incontinence. For vagina, patient reportsfoul-smellingandwhit e. For vulva, patient reportsno genital lesion.Breast symptomsFor breast, patient reportsno breast pain,no breast lump, andno nipple discharge.Endocrine symptomsFor sexual complaints, patient reportsno sexual complaints,no pain during intercourse, andnormal libido. For menopausal symptoms, patient reportsno menopausal symptomsandnormal vaginal lubrication.Psychological symptomsFor psychological symptoms, patient reportsno depression,no anxiety, andno pmdd.ROS as noted in the HPI Tameka is here for her AEXHer last pap was 02/14/22 NIMLShe is currently experiencing vaginal odor, dischargeShe has a hx of frequent vaginal infectionsShe does take a probiotic dailyShe is also experiencing dysuria. She has a hx of interstitial cystitisShe requests GC/CT testing todayShe is experiencing generalized pelvic painHer LMP was 12/11/23. Her cycles are irregular on occasion BITA Sauer [address] [place], [address], [employer] 01/08/2024 16:21:48 4 text/html Pelvic PainReported by PatientHPIFor associated symptoms, patient reportsno abdominal pain,no back pain,no chills,no constipation,no diarrhea,no vaginal discharge,no pain with urination,normal emptying of bladder,no feelings of urgency,no blood in the urine,normal libido,no fever,no nausea,no vomiting,no nocturia,no sexual abuse,no ectopic pregnancies,no endometriosis,no urinary frequency,no vaginal itching or irritation, andno dyspareunia.ROS as noted in the HPI Tameka is here for follow up to her pelvic u/s in the office today for dx of pelvic paiHer last pap was 01/08/24 NIMLShe declines STI testing todayShe is experiencing generalized pelvic painShe denies urinary/bowel issuesHer LMP was 12/11/23. Her cycles are irregular on occasionShe is currently not using controlShe has tried various methods in the past and stopped d/t mood changesShe has a hx of ovarian cystsShe is sexually active BITA Sauer [address] [employer] [facility], [place], [address], [facility] 01/16/2024 14:48:31 OBGyn Episode Ob Episode Information Episode Created Date Number of Fetuses Patient Bloodtype Patient rh Status Prepregnancy Weight lbs Domestic Partner Domestic Partner Phone Father Name [employer] Internship Status 11/17/19 22 1 CLOSED Fetus Data First Name Last Name Admitted to NICU Weight (g) Sex Living Outcome Pediatric Complications Fetus ID Race Codes Race Delivery Type 3883.88 15 F [id number] Duarte Calculation Initial Duarte Date Initial Exam [...] Complications Tubal Sterilization Discharge Date Comments 9 277 false Discharge Information Feeding Method Contraceptive Method Maternal HG B and HCT Levels
--- OUTSIDE RECORDS SUMMARY | 2025-03-28 10:15 | XMS_ITS | Clinical Summary ---
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 20 tablet Active Active Problems Comments Yes No known active problems Family History Medical History Relation Comments None Father None Mother Relation Status Comments Father Alive Mother Alive Social History Tobacco Use Types Packs/Day Years Used Date Smoking Tobacco: Every Day Electronic Cigarettes Passive Smoke Exposure: Never Smokeless Tobacco: Never Tobacco Cessation:Ready to Q uit: Not Asked; Counseling Given: Not Answered Alcohol Use Standard Drinks/Week Comments Yes 0 (1 standard drink = 0.6 oz pur e alcohol) occasionally Comments Yes Sex and Gender Information Value Date Recorded Sex Assigned at Not on file Legal Sex Female 7:01 PM CDT Gender Identity Not on file Sexual Orientation Not on file Last Filed Vital Signs Vital Sign Reading Time Taken Comments Blood Pressure 122/79 05/23/2024 8:40 PM CDT Pulse 85 05/23/2024 8:40 PM CDT Temperature 36.8 C (98.3 F) 05/23/2024 6:21 PM CDT Respiratory Rate 16 05/23/2024 8:40 PM CDT Oxygen Saturation 100% 05/23/2024 8:40 PM CDT Inhaled Oxygen Concentration - - Weight 68 kg (150 lb) 05/23/2024 6:21 PM CDT Height 172.7 cm (5' 8) 05/23/2024 6:21 PM CDT Body Mass Index 22.81 05/23/2024 6:21 PM CDT Plan of Treatment Health Maintenance Due Date Last Done Comments Cervical Cancer Screening Pa p Smear (Age 21 to 29) Every 3 Years 1999 Cervical Cancer Screening 1999 Annual Physical 2002 HPV Vaccines (1 - 3-dose series) 2014 DTaP, Tdap and Td Vaccines ( 4 - Tdap) 2018 07/03/2000, 02/08/2000, 1999 Pneumococcal Vaccine: Pediatrics (0 to 5 Years) and At-Risk Patients (6 to 49 Years) (1 of 2 - PCV) 2018 10/17/2000, 07/03/2000 COVID-19 Vaccine (2023-2 5 season) 2024 RSV Immunization or 60+ Years (1 - 1-dose 75+ series) 2074 Hepatitis B Vaccines Completed 07/03/2000, 1999, 1999 Hepatitis C Completed 02/27/2017 Meningococcal B Vaccine Aged Out No l onger eligible based on patient's age to complete this topic Meningococcal Vaccine Aged Out No olya candy eligible based on patient's age to complete this topic RSV Immunizations Under 20 Months Aged Out No longer eligible b ased on patient's age to complete this topic Procedures Procedure Name Priority Date/Time Associated Diagnosis Comments HEPATITIS C ANTIBODY Routine 02/27/2017 2:10 PM CDT from Last 3 Months or Most Recently Relevant to Health Maintenance Results * HEPATITIS C ANTIBODY (02/27/2017 2:10 PM CDT) HEPATITIS C AB NON-REACTI VE NON-REACTI VE 02/28/2017 5:30 PM CDT [facility] Comment: TESTING PERFORMED AT [facility] [address] [place] [address] SERUM OR PLASMA SPECIMEN / Unknown 02/27/2017 2:10 PM CDT 02/27/2017 2:29 PM CDT us Generic Conversion Md [facility] Final R esult [facility] [address] [place] [address], from Last 3 Months or Most Recently Relevant to Health Maintenance Additional Health Concerns Infection Onset Date Last Indicated 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
[2025-03-28 10:37] VITALS: BP 143/99; PULSE 97; RESP 16; TEMP 36.6; O2SAT 99
--- NOTE | 2025-03-28 11:00 | ED.FEMALEGU ---
HPI - Female Genitourinary General Chief complaint: Vaginal Bleeding Stated complaint: preg complication Time Seen by Provider: 03/28/25 10:24 Source: patient Mode of arrival: ambulatory Limitations: no limitations History of Present Illness HPI Narrative: 24-year-old 3(versus 4) 1 female presents with vaginal bleeding. Patient's last menstrual period was 01/25/2025. States she was/is approximately 9 weeks . OB Gyne is Dr. Hakan Gandara through [facility] [place]. [facility]. She notes that intrauterine was confirmed there. On for she believe she received mifepristone. He believes it with misoprostol that she took yesterday at approximately 4:35 p.m., 4 buccal pills. She currently has no follow-up scheduled or planned. She is advised to take a test in 1 month. Patient states she passed 2 clots and experience some upper abdominal cramping/pain. She is also having diarrhea. She states that she was told this would happen. Patient states the vaginal bleeding has lightened and is only spotting. She states she is concerned that she is not actually passing this as she notes that she had a miscarriage earlier this year that did not respond to medication and required D&C. She has subjective fever last night although not measured. She notes that she had goose bumps and felt cold. She is feeling nauseated but no vomiting. Has not taken any medications prior to arrival pain. Related Data Allergies Allergy/AdvReac Type Severity Reaction Status Date / Time latex AdvReac Mild Rash Verified 06/10/24 08:49 PMFSH Past Medical History Medical History History of full term delivery PONV (postoperative nausea and vomiting) Anxiety Surgical History Surgical History H/O dilation and curettage 06/2024; Dr Stokes for retained POC after miscarriage Social History Social History Years smoked: 4 Tobacco type: e-cigarettes/vaping Alcohol intake: current Living arrangements: with family Spiritual care concerns: No Exam Narrative: GENERAL: Well-appearing, well-nourished, and in no acute distress. HEAD: Normocephalic, atraumatic. EYES: Non injected, non icteric ENT: Nares clear, no rhinorrhea or epistaxis. Gross auditory acuity intact. NECK: Supple. No meningismus. CHEST: Speaking in full sentences. No respiratory distress. HEART: Regular rate and rhythm. . ABDOMEN: Soft, nondistended. Mild tenderness to palpation throughout but No rigidity or guarding. Not peritoneal EXTREMITIES: Normal range of motion. No lower extremity edema. SKIN: Warm, dry, no rash. NEURO: No focal deficits. Alert and oriented. Answering questions. Following commands. Normal speech without aphasia or dysarthria. PSYCH: Normal mood and affect. Course Vital Signs Vital signs: Vital Signs Temperature 97.9 F 03/28/25 10:37 Pulse Rate 97 03/28/25 10:37 Respiratory Rate 16 03/28/25 10:37 Blood Pressure 143/99 H 03/28/25 10:37 Pulse Oximetry 99 03/28/25 10:37 Oxygen Delivery Room Air 03/28/25 10:37 Temperature 97.8 F 03/28/25 13:30 Pulse Rate 76 03/28/25 13:30 Respiratory Rate 16 03/28/25 13:30 Blood Pressure 126/74 03/28/25 13:30 Pulse Oximetry 100 03/28/25 13:30 Oxygen Delivery Room Air 03/28/25 10:37 MDM - Female Genitourinary MDM Narrative Medical decision making narrative: 24 yo 3 (versus 4)1 female at [place] 8wk 6d by stated LMP 01/25/25 presents after attempting voluntary termination of via medications. Took mifepriston on Saturday and buccal misoprostal yesterday. Has experienced some vaginal bleeding although states this is lightening up. Also experiencing some upper abdominal cramping. However she is concerned she is not passing this . Required D&C previously for miscarriage within the past year for retained POC. In the emergency she is afebrile signs notable for hypertension. Hemoglobin normal, Hct slightly low. No leukocytosis. Bhcg >15,000 ([id number]). Will obtain US to eval for retained POC. Ultrasound as below does not indicate retained fetus or products of conception. Patient is anxious. She notes that on the 1 hand she believes she held her fetus in her hand but on the other hand when she had her miscarriage and required a D&C she had similar symptoms in terms of minimal bleeding and cramping. Operative note is reviewed and shows at that time she had moderate amount of retained products of conception. I did discuss with Dr. Stokes, on-call for patient's Ob Gyne Dr Hakan Gandara and the ObGyn who performed her D&C in June. He notes that things seem to be progressing as they should. Patient already has a follow-up appointment with Dr. Gandara on Saturday but he does states that she can come to [facility] [place] tomorrow and be seen if she would like as both he and Dr Gandara will be around/available. Patient updated and advised about this as well as bleeding precautions. Differential Diagnosis Differential diagnosis: Likely urinary tract infection, cystitis and other (retained POC/failed miscarriage/; septic ) Medical Records Attestation: I reviewed the patient's medical records. Medical records narrative: Operative note is reviewed Lab Data Attestation: I reviewed the patient's lab results. Lab results narrative: Normal renal function. Mild hyponatremia 03/28/25 10:58 03/28/25 10:58 Labs: Lab Results 03/28/25 03/28/25 Range/Units 10:58 11:06 WBC 8.2 (4.5-10.0) K/mm3 RBC 3.83 L (4.2-5.4) M/mm3 Hgb 12.2 (12.0-15.0) g/dL Hct 35.5 L (37.0-47.0) % MCV 92.7 (80-100) fl MCH 31.9 (26-34) pg MCHC 34.4 (32-36) g/dl RDW 11.8 (11.5-14.5) % Plt Count 177 (150-375) k/mm3 MPV 11.0 H (7.4-10.4) fl Immature Gran % (Auto) 0.2 (0-0.5) % Neut % (Auto) 64.4 (45.5-73.1) % Lymph % (Auto) 23.6 (18.3-44.2) % Ada % (Auto) 9.4 H (2.6-8.5) % Eos % (Auto) 2.2 (0-4.4) % Baso % (Auto) 0.2 (0.2-1.2) % Lymph # (Auto) 1.94 (0.9-3.2) K/mm3 Ada # (Auto) 0.8 H (0.1-0.6) K/mm3 Eos # (Auto) 0.2 (0-0.3) K/mm3 Baso # (Auto) 0.0 (0.0-0.1) K/mm3 Abs Immat Gran (auto) 0.02 (0.00-0.031) K/mm3 Absolute Neuts (auto) 5.3 (1.3-6.7) K/mm3 Absolute Nucleated RBC 0.000 (0.0-0.012) K/mm3 Nucleated RBC % 0.0 (0.0-0.2) % PT 14.3 (11.1-14.7) Seconds INR 1.1 APTT 23.9 (22.3-36.8) Seconds Sodium 132 L (137-145) mmol/L Potassium 3.7 (3.4-5.0) mmol/L Chloride 104 (98-107) mmol/L Carbon Dioxide 22 (22-30) mmol/L Anion Gap 6 (4-12) mmol/L BUN 5 L (7-17) mg/dL Creatinine 0.61 L (0.7-1.0) mg/dL Estim Creat Clear Calc 121 ml/min Estimated GFR > 60 (59 - ) Glucose 108 (65-110) mg/dL Calcium 8.8 (8.4-10.2) mg/dL Magnesium 1.8 (1.6-2.3) mg/dL Total Bilirubin 0.4 (0.2-1.3) mg/dL AST 27 (14-36) U/L ALT 19 (6-35) U/L Alkaline Phosphatase 45 (38-126) U/L Total Protein 6.8 (6.3-8.2) g/dL Albumin 3.7 (3.5-5.1) g/dL Beta HCG, Quant 19921.00 mIU/ML Urine Color Yellow (Yellow) Urine Appearance Cloudy H (Clear) Urine pH 6.0 (5.0-9.0) Ur Specific [place] 1.009 (1.001-1.035) Urine Protein Negative (Negative) mg/dL Urine Glucose (UA) Negative (Negative) mg/dL Urine Ketones Negative (Negative) mg/dL Ur Blood (Man) 2+ H (Negative) Urine Nitrate Negative (Negative) Urine Bilirubin Negative (Negative) Urine Urobilinogen 0.2 (<2.0) mg/dL Leukocyte Esterase Rfl Negative (Negative) MANDO/UL Urine RBC 0-2 (0-2) /hpf Urine WBC 0-5 (0-3) /hpf Ur Squamous Epith Cells Occasional (Few) /hpf Urine Bacteria None seen /hpf Urine Casts 0-2 Imaging Data Radiologist's impression: Impressions Ultrasound 03/28/25 12:55 IMPRESSION: Thickened heterogeneous and vascular endometrial complex, as detailed above. Discharge Plan Discharge Clinical Impression: Hyponatremia, Status post elective Patient Disposition: Home Condition: Stable Instructions: Antibiotic Form, Miscarriage (ED), Hyponatremia (ED) Additional Instructions: Your ultrasound did not show a fetus/retained products of conception. Follow the post [facility] and you can follow-up with either them or your OB Gyne as needed. Return to the emergency department with any new or worsening symptoms such as intractable pain, vaginal bleeding saturating 2 pads/hour for 2-3 hours, etc. Acetaminophen/Tylenol (maximum 4000 mg per day) is safe to take for pain relief. Zofran can help for nausea/vomiting. Rest and maintain your hydration. Patient Language: Stateless Prescriptions: New ondansetron 4 mg tablet,disintegrating 4 mg PO Q8H PRN (Reason: nausea and vomiting) Qty: 7 0RF acetaminophen 500 mg capsule 1,000 mg PO Q6H PRN (Reason: pain) Qty: 30 0RF Follow-up/Referrals: Hakan Gandara MD [Physician] - PHYSICIAN,COVERAGE SPECIALIST [Primary Care Provider] - Stand Alone Forms: Work/School Release IP Time of Disposition: 13:23
[2025-03-28 11:06] LABS: Hematocrit 35.5 % (37.0-47.0); Hemoglobin 12.2 g/dL (12.0-15.0); Immature Granulocyte Percent A 0.2 % (0-0.5); Lymphocytes Absolute Auto 1.94 K/mm3 (0.9-3.2); Mean Corpuscular HGB Conc 34.4 g/dl (32-36); Mean Corpuscular Hemoglobin 31.9 pg (26-34); Mean Corpuscular Volume 92.7 fl (80-100); Nucleated Red Blood Cells Absolute Auto 0.000 K/mm3 (0.0-0.012); Nucleated Red Blood Cells Perc 0.0 % (0.0-0.2); Platelet Count Result 177 k/mm3 (150-375); Red Blood Count 3.83 M/mm3 (4.2-5.4); White Blood Count 8.2 K/mm3 (4.5-10.0)
[2025-03-28 11:14] LABS: Add Urine Microscopic? YES; Appearance Urine Cloudy (Clear); Glucose Urine UA Negative (Negative); Leukocyte Esterase Ur Negative LEU/UL (Negative); Nitrate Urine Negative (Negative); Non Pathogenic Casts 0-2; Specific Grav Ur 1.009 (1.001-1.035)
[2025-03-28 11:19] LABS: INR 1.1; Prothrombin Time 14.3 Seconds (11.1-14.7)
[2025-03-28 11:20] LABS: Partial Thromboplastin Time 23.9 Seconds (22.3-36.8)
[2025-03-28] MEDS: ONDANSETRON HCL ODT 4 MG TABLET PO (11:24)
[2025-03-28 11:30] LABS: Alanine Aminotransferase 19 U/L (6-35); Albumin Level 3.7 g/dL (3.5-5.1); Alkaline Phosphatase 45 U/L (38-126); Aspartate Amino Transferase 27 U/L (14-36); Bilirubin,Total 0.4 mg/dL (0.2-1.3); Blood Urea Nitrogen 5 mg/dL (7-17); Calcium 8.8 mg/dL (8.4-10.2); Carbon Dioxide 22 mmol/L (22-30); Estimated CRCL calculation 121 ml/min; Estimated Glomerular Filt Rate > 60; Glucose 108 mg/dL (65-110); Magnesium 1.8 mg/dL (1.6-2.3); Potassium 3.7 mmol/L (3.4-5.0); Sodium 132 mmol/L (137-145); Total Protein 6.8 g/dL (6.3-8.2)
[2025-03-28 11:39] LABS: Anion Gap 6 mmol/L (4-12); Chloride 104 mmol/L (98-107)
[2025-03-28 12:16] LABS: Beta HCG Quantitative 37623.00 mIU/ML
[2025-03-28 12:24] VITALS: BP 132/76; PULSE 76; RESP 16; TEMP 36.6; O2SAT 98
[2025-03-28 13:30] VITALS: BP 126/74; PULSE 76; RESP 16; TEMP 36.6; O2SAT 100
== END 2025-03-28 14:23 | disposition home or self-care (01) ==
PROVIDERS: Emergency Provider Student in an Organized Health Care Education/Training Program
DX: E87.1 Hypo-osmolality and hyponatremia (principal); Z98.890 Other specified postprocedural states
CPT/HCPCS: 36415; 76801; 80053; 81001; 83735; 84702; 85025; 85610; 85730; 99284; A9270